=== PATIENT | female | born 1980 | race Caucasian/White ===

== ENCOUNTER → 2019-03-20 13:01 | Outpatient (BNVA) | payer OTHER, SELFPAY | PROVIDERS: PCP Nurse Practitioner; Visit Provider Nurse Practitioner | DX: R87.615 Unsatisfactory cytologic smear of cervix (principal); Z78.9 Other specified health status; J02.0 Streptococcal pharyngitis | CPT/HCPCS: 87070; 87081 ==

== ENCOUNTER 2019-03-21 11:03 | Outpatient (CLI) | payer OTHER, SELFPAY ==
--- NOTE | 2019-03-21 11:24 | MM_ITS ---
WS: [id number] SCREENING DIGITAL MAMMOGRAM WITH CAD HISTORY: SCREENING COMPARISON: None available. Bilateral CC and MLO views submitted. Computer aided detection analyzed. Breast composition: There are scattered areas of fibroglandular density. No suspicious masses, microc alcifications or architectural distortion. MM/[place] [id number] IMPRESSION: BI-RADS: 1-Negative FOLLOW UP: 1 Year Follow-up
== END 2019-03-21 11:04 | disposition home or self-care (01) ==
LOC: RADSHAW 11:12
PROVIDERS: PCP Nurse Practitioner Family; Visit Provider Nurse Practitioner Family
DX: Z12.31 Encounter for screening mammogram for malignant neoplasm of breast (principal)
CPT/HCPCS: 77067

== ENCOUNTER 2019-05-20 15:31 | Emergency (ER) | payer OTHER, SELFPAY ==
[2019-05-20 15:33] VITALS: BMI 42.3
[2019-05-20 15:35] VITALS: BP 146/88; PULSE 89; RESP 16; TEMP 36.7; O2SAT 96
--- NOTE | 2019-05-20 17:55 | ED_ITS ---
Entered by Jimmy Treadwell LPN, acting as scribe for Tim Casanova MD May 20, 2019 15:31 HPI - Abdominal Pain General: Chief Complaint: Abdominal Pain Stated Complaint: right side pain Time Seen by Provider: 05/20/19 17:57 Source: patient Mode of arrival: ambulatory Limitations: no limitations History of Present Illness: HPI narrative: 39 yo female presents reporting about 0300 this am she woke up with abd pain and nausea, had dry heaves. She went back to sleep and woke up without nausea but the abd pain was still present. Throughout the day today the pain has worsened, present in the right abd, worse with movement. She denies any fever. Has had chills. Associated Symptoms: Reports chills; Denies diarrhea, dysuria, fever(s), nausea and vomiting Related Data: Date of Last Menstrual Period: 03/18/19 Review of Systems Const: Reports: chills; Denies: fever, body aches or change in appetite Eyes: Denies: blurry vision or eye discomfort ENMT: Denies: throat pain or dental pain Card: Denies: chest pain Resp: Denies: shortness of breath GI: Reports: abdominal pain; Denies: nausea, vomiting or diarrhea : Denies: painful urination Musc: Denies: neck pain or back pain Skin/Breast: Denies: rash Neuro: Denies: headache Psych: Denies: depression [place]/Lymph: Denies: easy bruising All/Imm: Denies: hives PFSH ED PFSH: Social History Smoking and tobacco status: never smoked Alcohol intake: never Lives independently: Yes Number of children: 3 Female Reproductive History: Date of last menstrual period: 03/18/19 Spontaneous abortions: No Physical Exam Const: COMMON NORMALS: no apparent distress, oriented x3 and healthy appearing HENMT: COMMON NORMALS: normocephalic and head/scalp atraumatic HEAD & SCALP: normocephalic and atraumatic Eye: COMMON NORMALS: PERRL and EOMs intact bilaterally PUPIL: Yes PERRL Neck/C-Spine: COMMON NORMALS: full ROM and supple Chest: COMMONS NORMALS: inspection of chest normal and palpation of chest normal Resp: COMMON NORMALS: normal respiratory effort, no retractions, no use of accessory muscles and clear to auscultation bilaterally AUSCULTATION: clear to auscultation bilaterally Cardio: COMMON NORMALS: regular rate, regular rhythm and no murmurs RATE: regular rate RHYTHM: regular rhythm GI: COMMON NORMALS: normal to inspection, nondistended, normoactive bowel sounds, soft to palpation and no masses PALPATION: Yes soft and Yes tender (mild, right abd) Extremity: COMMON NORMALS: normal to inspection and full ROM Neuro: COMMON NORMALS: oriented x3, moves all extremities and no focal motor deficits Psych: COMMON NORMALS: mental status grossly normal, thought process normal and cooperative THOUGHT PROCESS: normal thought process Skin: COMMON NORMALS: no rashes or lesions noted and no wounds GENERAL SKIN EXAM: no rashes or lesions noted Course Vital Signs: Vital signs: Vital Signs Temperature 98.0 F 05/20/19 15:35 Pulse Rate 89 05/20/19 15:35 Respiratory Rate 15 05/20/19 18:43 Blood Pressure 146/88 05/20/19 15:35 Pulse Oximetry 96 05/20/19 15:35 MDM - Abdominal Pain MDM Narrative: Medical decision making narrative: Patient's ultrasound here did show a gallstone. Patient's wall was not thickened had no signs of cholecystitis. Patient's pain is resolved here and lab work is normal. Will set up appointment with Dr. Hamilton to follow-up with gallstones and abdominal pain. Patient exam here is benign has no signs of acute abdomen. Patient is stable for discharge. Lab Data: Labs: Lab Results 05/20/19 05/20/19 05/20/19 Range/Units 15:45 15:45 18:28 WBC 7.6 (4.0-10.0) 10^3/ uL RBC 4.90 (4.1-5.3) 10^6/u L Hgb 13.8 (11.5-15.3) g/dL Hct 43.0 (37.0-47.0) % MCV 87.8 (81-99) fL MCH 28.2 (28.0-34.0) pg MCHC 32.1 (30.0-36.0) g/dL RDW 13.7 (12.1-15.1) % Plt Count 257 (130-400) 10^3/c mm MPV 10.4 (7.4-10.4) fL Neut % (Auto) 63.9 % Lymph % (Auto) 28.5 % [place] % (Auto) 5.7 % Eos % (Auto) 1.4 % Baso % (Auto) 0.1 % Neut # (Auto) 4.9 (1.8-7.7) 10^3/u L Lymph # (Auto) 2.2 (0.8-4.8) 10^3/u L [place] # (Auto) 0.4 (0.2-0.9) 10^3/u L Eos # (Auto) 0.1 (0.0-0.8) 10^3/u L Baso # (Auto) 0.0 (0.0-0.1) 10^3/u L Nucleated RBC % (a uto) 0 % Nucleated RBCs # 0.0 /100WBC Sodium (136-145) mmol/L Potassium (3.5-5.1) mmol/L Chloride (98-107) mmol/L Carbon Dioxide (22-29) mmol/L Anion Gap (5-19) BUN (6-20) mg/dL Creatinine (0.5-0.9) mg/dL GFR Calculation (90-130) mL/min Glucose (65-115) mg/dL Calcium (8.5-10.5) mg/dL Total Bilirubin (0.15-1.2) mg/dL AST (0-32) U/L ALT (0-33) U/L Alkaline Phosphata se (35-105) IU/L Total Protein (6.6-8.7) g/dL Albumin (3.5-5.2) g/dL Globulin (1.3-4.6) g/dL Lipase (13-60) U/L HCG, Qual Negative (Negative) Urine Color Yellow (Yellow) Urine Appearance Clear (CLEAR) Urine pH 6 (5-7) Ur Specific Gravit y 1.015 (1.005-1.030) Urine Protein Neg (Negative) Urine Glucose (UA) Norm (Normal) Urine Ketones Negative (Negative) Urine Blood Neg (Negative) Urine Nitrate Negative (Negative) Urine Bilirubin Neg (NEGATIVE) Urine Urobilinogen Norm (Negative) mg/dL Ur Leukocyte Tammy ase Negative (Negative) 05/20/19 Range/Units 18:28 WBC (4.0-10.0) 10^3/ uL RBC (4.1-5.3) 10^6/u L Hgb (11.5-15.3) g/dL Hct (37.0-47.0) % MCV (81-99) fL MCH (28.0-34.0) pg MCHC (30.0-36.0) g/dL RDW (12.1-15.1) % Plt Count (130-400) 10^3/c mm MPV (7.4-10.4) fL Neut % (Auto) % Lymph % (Auto) % [place] % (Auto) % Eos % (Auto) % Baso % (Auto) % Neut # (Auto) (1.8-7.7) 10^3/u L Lymph # (Auto) (0.8-4.8) 10^3/u L [place] # (Auto) (0.2-0.9) 10^3/u L Eos # (Auto) (0.0-0.8) 10^3/u L Baso # (Auto) (0.0-0.1) 10^3/u L Nucleated RBC % (a uto) % Nucleated RBCs # /100WBC Sodium 138 (136-145) mmol/L Potassium 3.7 (3.5-5.1) mmol/L Chloride 100 (98-107) mmol/L Carbon Dioxide 24 (22-29) mmol/L Anion Gap 17.7 (5-19) BUN 9 (6-20) mg/dL Creatinine 1.0 H (0.5-0.9) mg/dL GFR Calculation 61.1 L (90-130) mL/min Glucose 91 (65-115) mg/dL Calcium 10.2 (8.5-10.5) mg/dL Total Bilirubin 0.3 (0.15-1.2) mg/dL AST 22 (0-32) U/L ALT 36 H (0-33) U/L Alkaline Phosphata se 78 (35-105) IU/L Total Protein 8.9 H (6.6-8.7) g/dL Albumin 3.8 (3.5-5.2) g/dL Globulin 5.1 H (1.3-4.6) g/dL Lipase 26 (13-60) U/L HCG, Qual (Negative) Urine Color (Yellow) Urine Appearance (CLEAR) Urine pH (5-7) Ur Specific Gravit y (1.005-1.030) Urine Protein (Negative) Urine Glucose (UA) (Normal) Urine Ketones (Negative) Urine Blood (Negative) Urine Nitrate (Negative) Urine Bilirubin (NEGATIVE) Urine Urobilinogen (Negative) mg/dL Ur Leukocyte Tammy ase (Negative) Discharge Plan Discharge Patient Disposition: Home, Self-Care Clinical Impression: Gall stone Abdominal pain Qualifiers: Abdominal location: right upper quadrant Qualified Code(s): R10.11 - Right upper quadrant pain Condition: Stable Prescriptions: New EC-Naprosyn 500 mg tablet,delayed release (DR/EC) 500 mg PO BID PRN (Reason: pain) Qty: 20 RF: 0 No Action melatonin 10 mg capsule 10 mg PO .at bedtime RF: 0 norgestimate-ethinyl estradiol [Sprintec (28)] 0.25-35 mg-mcg tablet 1 tab PO QDAY Qty: 84 RF: 1 amitriptyline 10 mg tablet 20 mg PO .bedtime 30 Days Qty: 60 RF: 0 omeprazole 20 mg capsule,delayed release(DR/EC) 20 mg PO DAILY Qty: 30 RF: 2 Discharge Orders: Discharge Order (Routine); Ordered 05/20/19 Ordered By: Tim Casanova Referrals: Freddy Zaragoza, [facility] [employer] OFFICER [Primary Care Provider] - Ronny Hamilton MD [Physician] - Discharge Diet: Advance as tolerated Discharge Activity: Resume usual activity Patient Instructions: Abdominal Pain (ED) Coding Level of Care Code ED Patent Examiner for Chg Fwd Exam Comprehensive The documentation recorded by the Eben matthew Dani Elizabeth, LPN, accurately reflects the service I personally performed and the decisions made by Edilberto mcneil Korby, MD May 20, 2019 15:31
--- NOTE | 2019-05-20 18:01 | US_ITS ---
WS: [id number] ABDOMINAL ULTRASOUND LIMITED REASON FOR VISIT: abd pain TECHNIQUE: Grayscale and Doppler ultrasound examination of the abdomen. FINDINGS: Pancreas: Within normal limits. Abdominal aorta and IVC: Within normal limits. Liver: Liver measures 14.4 cm in length. Hepatopedal portal blood flow. Gallbladder: Gallbladder wall thickness measures .28 mm. A prominent gallstone. Right kidney: Right kidney measures 12.1 cm x 3.5 cm x 3.9 cm. Right kidney cortex measures 1.03 cm. No hydronephrosis or stones. US/US gall bladder [id number] IMPRESSION: Cholelithiasis Acute cholecystitis.
[2019-05-20 18:20] LABS: HCG Qualitative Urine. Negative (Negative)
[2019-05-20 18:24] LABS: Add Urine Microscopic? NO
[2019-05-20 18:41] LABS: Bilirubin Urine Neg (NEGATIVE); Blood Urine Neg (Negative); Glucose Urine UA Norm (Normal); Ketones Urine Negative (Negative); Leukocyte Esterase Urine Negative (Negative); Nitrate Urine Negative (Negative); Protein Urine Neg (Negative); Specific Gravity, Urine 1.015 (1.005-1.030); Urine Appearance Clear (CLEAR); Urine Color Yellow (Yellow); Urobilinogen Urine Norm (Negative); pH Urine 6 (5-7)
[2019-05-20 18:43] VITALS: RESP 15
[2019-05-20] MEDS: morphine 4 mg/mL SDV 1 mL IVP (18:43)
[2019-05-20] MEDS: ondansetron 2 mg/ML SDV 2 mL 4 MG IVP (18:43)
[2019-05-20 18:45] LABS: Basophils % 0.1 %; Eosinophils # 0.1 10^3/uL (0.0-0.8); Eosinophils % 1.4 %; Hemoglobin 13.8 g/dL (11.5-15.3); Lymphocytes # 2.2 10^3/uL (0.8-4.8); Lymphocytes % 28.5 %; Mean Corpuscular HGB Conc 32.1 g/dL (30.0-36.0); Mean Corpuscular Hemoglobin 28.2 pg (28.0-34.0); Mean Corpuscular Volume 87.8 fL (81-99); Mean Platelet Volume 10.4 fL (7.4-10.4); Monocytes # 0.4 10^3/uL (0.2-0.9); Monocytes % 5.7 %; Neutrophils # 4.9 10^3/uL (1.8-7.7); Neutrophils % 63.9 %; Nucleated Red Blood Cells % 0 %; Platelet Count 257 10^3/cmm (130-400); Red Cell Distribution Width 13.7 % (12.1-15.1); White Blood Count 7.6 10^3/uL (4.0-10.0)
[2019-05-20 19:01] LABS: Alanine Aminotransferase 36 U/L (0-33); Albumin Level 3.8 g/dL (3.5-5.2); Alkaline Phosphatase 78 IU/L (35-105); Anion Gap 17.7 (5-19); Aspartate Amino Transferase 22 U/L (0-32); Blood Urea Nitrogen 9 mg/dL (6-20); Calcium 10.2 mg/dL (8.5-10.5); Carbon Dioxide 24 mmol/L (22-29); Chloride 100 mmol/L (98-107); Globulin 5.1 g/dL (1.3-4.6); Glomerular Filtration Rate 61.1 mL/min (90-130); Glucose 91 mg/dL (65-115); Lipase 26 U/L (13-60); Potassium 3.7 mmol/L (3.5-5.1); Sodium 138 mmol/L (136-145); Total Bilirubin 0.3 mg/dL (0.15-1.2); Total Protein 8.9 g/dL (6.6-8.7)
[2019-05-20 19:42] VITALS: BP 126/88; PULSE 75; RESP 18; TEMP 36.6; O2SAT 97
--- NOTE | 2019-05-21 15:08 | DCPLANNER ---
manager corporate marketing had message to schedule a follow up appointment for patient with [facility]. manager corporate marketing called the clinic, spoke with Mila, a follow up appointment is scheduled for Sunday, May 26, 2019 at 1:[address] Hamilton. Clinic will call patient with appointment information.
--- NOTE | 2019-05-28 14:17 | DCPLANNER ---
Patient did attend appointment scheduled for 05.26.19 with [facility].
== END 2019-05-20 19:45 | disposition home or self-care (01) ==
PROVIDERS: Emergency Provider Emergency Medicine; PCP Nurse Practitioner Family
DX: K80.00 Calculus of gallbladder with acute cholecystitis without obstruction (principal)
CPT/HCPCS: 36415; 76705; 80053; 81003; 81025; 83690; 85025; 96374; 96375; 99282; 99283; J2270; J2405

== ENCOUNTER 2019-06-04 05:53 | Day surgery (SDC) | payer OTHER, SELFPAY ==
[2019-06-03 12:20] VITALS: BMI 42.4
[2019-06-04] VITALS (17 sets, daily range): BP systolic 121–158; BP diastolic 73–100; PULSE 55–82; RESP 12–23; TEMP 36.6–36.9; O2SAT 94–100
--- NOTE | 2019-06-04 06:18 | ANES.PREANE2 ---
Pre-Anesthetic Assessment Pre-Anesthetic Assessment: Height/Weight: Height 1.65 m Weight 115.666 kg Temp Pulse Resp BP Pulse Ox 97.9 F 67 18 140/92 99 06/04/19 06:08 06/04/19 06:08 06/04/19 06:08 06/04/19 06:08 06/04/19 06:08 Preop Diagnosis: Cholelithiasis Proposed Procedure: Operation Date: 06/04/19 07:00 Proposed Procedures p Laparoscopic Cholecystectomy 88228 K80.20(Not Applicable) - Ronny Hamilton MD Last Intake: 22:00 Exam: Pre-Anes Outpt Exam: alert, oriented x 3, clear to auscultation bilaterally and regular rate & rhythm Airway: Submandibular: WNL Cervical ROM: WNL MP: 1 GI: GI: GERD Comments: well controlled with omeprazole Metabolic: Metabolic: Morbid obesity PFSH Anesthesia PFSH: Social History Smoking and tobacco status: never smoked Alcohol intake: never Lives independently: Yes Number of children: 3 Female Reproductive History: Date of last menstrual period: 05/13/19 Spontaneous abortions: No Data Anesthesia Cardiac Studies: No Data to Display
--- NOTE | 2019-06-04 06:51 | W.PM.OPSUD ---
Surgery/Procedure H&P Update DATE OF PROCEDURE: June 04, 2019 DATE H&P PERFORMED: 05/26/19 H&P UPDATE INFORMATION: I have reviewed H&P completed within last 30 days, I have examined patient prior to procedure and No changes to prior documentation PREOP DIAGNOSIS: Cholelithiasis PLANNED PROCEDURE: Operation Date: 06/04/19 07:00 Proposed Procedures p Laparoscopic Cholecystectomy 36277 K80.20(Not Applicable) - Ronny Hamilton MD
[2019-06-04 07:08] LABS: OR HCG Qualitative Urine Negative (Negative)
[2019-06-04] MEDS: sodium chloride 0.9% 1,000 ML 30 ML IV (08:03)
--- NOTE | 2019-06-04 08:06 | PM.OP ---
Operative Report Date of procedure: June 04, 2019 Pre-op Diagnosis: Cholelithiasis Post-op diagnosis: same Procedure Done: Laparoscopic cholecystectomy Specimens removed/disposition: Gallbladder Surgeon: Ronny Hamilton Anesthesia: General Estimated blood loss (mL): 10 Condition: stable Disposition: PACU Procedure: The patient was taken to the operating room and was intubated under general anesthesia. After the antibiotic had been administered, the abdomen was prepped and draped in a sterile manner. Using a #15 blade, a 1 centimeter infraumbilical curvilinear incision was made and using an open Geo technique the peritoneal cavity was entered. A 10 millimeter port was placed and 15 millimeters of pneumoperitoneum was created. A 10 millimeter, 30 degrees scope was then introduced. Three 5 millimeter ports were placed in the epigastric, midclavicular and the anterior axillary line two fingerbreadths below the costal margin on the right side under the direct visualization. Ratcheted forceps were introduced into the lateral most port and was used to retract the fundus of the gallbladder cephalad and using forceps the infundibulum of the gallbladder was retracted laterally. The omentum was adherent to the body of the gallbladder which was peeled away using electrocautery. Using L-hook cautery the peritoneum overlying the Calot's triangle was opened medially and laterally until the cystic duct and the anterior and posterior branch of cystic artery were skeletonized. Dissection was carried along the body of the gallbladder and after ensuring critical view of safety, 4 clips applied on the cystic duct and 3 clips applied on the anterior and posterior branch of cystic artery and cut leaving, 3 clips on the remaining portion of the duct and 2 clips on the remaining portion of the artery. The rest of the gallbladder was dissected off the liver using L-hook cautery. There was an opening in the body of the gallbladder with spillage of bile which was irrigated and suctioned out but there was no spillage of stones. There was no bleeding or bile leaking noted from the gallbladder fossa and the clips appeared to be in place. An EndoCatch bag was introduced to remove the gallbladder. All the ports were removed under direct visualization and there was no bleeding noted from the port sites. The fascia of the umbilicus was closed using [id number] 0 Vicryl sutures and the subcutaneous tissue was approximated using 3-0 Vicryl sutures. The skin at all four ports were closed using 4-0 Monocryl and Dermabond. A total of 10 millimeters of 0.5% Marcaine was infiltrated around the port sites. The patient was stable throughout the procedure.
--- NOTE | 2019-06-04 08:27 | SUR.PHASEI ---
0885 PATIENT TO PACU AT THIS TIME FROM OR. RR EVEN AND UNLABORED, PLACED ON SIMPLE MASK AT 8L, SPO2 99%. INCISIONS TO ABDOMEN, CLOSED WITH DERMABOND, CDI.
[2019-06-04] MEDS: fentaNYL 50 mcg/mL INJ 2mL IVP ×2 (08:32→08:39)
[2019-06-04] MEDS: morphine 4 mg/mL SDV 1 mL 2 MG IVP ×2 (08:46→08:51)
--- NOTE | 2019-06-04 09:04 | SUR.PHASEI ---
0901 PATIENT TO OPS AT THIS TIME. NO DISTRESS. INCISIONS TO ABDOMEN, CDI. PATIENT REPORTS PAIN /. WANTING A PAIN PILL IN OPS. ANESTHESIA AWARE OF LAST PAIN MEDICATION GIVEN.
[2019-06-04] MEDS: morphine 4 mg/mL SDV 1 mL IVP (09:20)
[2019-06-04] MEDS: HYDROcodone-acetaminophen 5-325 mg Tablet 1 TAB PO (09:29)
== END 2019-06-04 10:40 | disposition home or self-care (01) ==
PROVIDERS: Anesthesiology; PCP Nurse Practitioner Family; Visit Provider Surgery
PROC: 0FT44ZZ Resection of Gallbladder, Percutaneous Endoscopic Approach (ICD-10-PCS; CPT 47562; principal; 2019-06-04 07:00)
DX: K80.10 Calculus of gallbladder with chronic cholecystitis without obstruction (principal); F32.9 Major depressive disorder, single episode, unspecified; F41.9 Anxiety disorder, unspecified; K21.9 Gastro-esophageal reflux disease without esophagitis; G47.00 Insomnia, unspecified; Z82.49 Family history of ischemic heart disease and other diseases of the circulatory system; E66.01 Morbid (severe) obesity due to excess calories; Z68.41 Body mass index [BMI] 40.0-44.9, adult
CPT/HCPCS: 47562; 12345; 81025; 84703; 88304; 96374; J0131; J0690; J1100; J2001; J2270; J2704; J2710; J3010; J3490; J7030

== ENCOUNTER → 2019-08-15 08:26 | Outpatient (BNVA) | payer OTHER, SELFPAY | PROVIDERS: PCP Nurse Practitioner Family; Visit Provider Nurse Practitioner Women's Health | DX: Z30.41 Encounter for surveillance of contraceptive pills; Z32.00 Encounter for pregnancy test, result unknown | CPT/HCPCS: 81025 ==

== ENCOUNTER → 2019-11-04 15:32 | Outpatient (BNVA) | payer OTHER, SELFPAY | PROVIDERS: PCP Nurse Practitioner Family; Visit Provider Nurse Practitioner Family | DX: J03.91 Acute recurrent tonsillitis, unspecified (principal) | CPT/HCPCS: 87071; 87880 ==

== ENCOUNTER 2020-01-08 20:00 | Outpatient (CLI) | payer OTHER, SELFPAY | END 2020-01-08 20:01 | disposition home or self-care (01) | LOC: SLEEP 01-09 08:15 | PROVIDERS: PCP Nurse Practitioner Family; Visit Provider Specialist | DX: R06.83 Snoring (principal); G47.33 Obstructive sleep apnea (adult) (pediatric) | CPT/HCPCS: 95810 ==

== ENCOUNTER → 2020-02-26 15:19 | Outpatient (BNVA) | payer OTHER, SELFPAY | PROVIDERS: PCP Nurse Practitioner Family; Visit Provider Specialist | DX: Z01.812 Encounter for preprocedural laboratory examination (principal); Z20.828 Contact with and (suspected) exposure to other viral communicable diseases | CPT/HCPCS: 87635 ==

== ENCOUNTER 2020-03-02 06:02 | Day surgery (SDC) | payer OTHER, SELFPAY ==
[2020-03-01 09:24] VITALS: BMI 44.1
[2020-03-02] VITALS (9 sets, daily range): BP systolic 129–152; BP diastolic 82–111; PULSE 64–97; RESP 14–18; TEMP 36.1–36.9; O2SAT 94–100
--- NOTE | 2020-03-02 06:39 | ANES.PREANE2 ---
Pre-Anesthetic Assessment Pre-Anesthetic Assessment: Height/Weight: Height 1.65 m Weight 120.202 kg Preop Diagnosis: Cholelithiasis Proposed Procedure: Operation Date: 03/02/20 07:00 Proposed Procedures p Tonsillectomy(Bilateral) - Albert Choe MD Was Beta Humza taken within 24 hours: N/A Last intake: Intake Last Liquid Date 03/01/20 Last Liquid Time 21:45 Last Solid Date 03/01/20 Last Solid Time 20:30 Social: Social History: No alcohol and No tobacco Exam: Pre-Anes Outpt Exam: alert, oriented x 3, clear to auscultation bilaterally and regular rate & rhythm Airway: Submandibular: WNL Cervical ROM: WNL MP: 2 (Severely hypertrophied tonsils ) Pulmonary: Pulmonary: Sleep apnea CV/HEM: CV/HEM: None reported : : None reported Hepatic: Hepatic: None reported GI: GI: GERD Metabolic: Metabolic: Morbid obesity Musc/skel: Musc/skel: None reported Neuropsych: Neuropsych: Anxiety Anesthetic Plan: ASA status: 3 Anesthesia: General PFSH Anesthesia PFSH: Medical History (Updated 11/04/19 @ 15:54 by ANTOLIN Santo) Depression with anxiety GERD (gastroesophageal reflux disease) Insomnia Recurrent tonsillitis Surgical History Status post laparoscopic cholecystectomy (~05/2019) Family History Brother CAD (coronary artery disease) Mother Hemochromatosis Other Heart disease Social History Smoking and tobacco status: never smoked Alcohol intake: never Female Reproductive History: Date of last menstrual period: 02/12/20 Spontaneous abortions: No Data Anesthesia Cardiac Studies: No Data to Display
[2020-03-02 06:45] LABS: Basophils % 0.2 %; Eosinophils # 0.3 10^3/uL (0.0-0.8); Eosinophils % 2.9 %; Hemoglobin 13.1 g/dL (11.5-15.3); Lymphocytes % 30.6 %; Mean Corpuscular HGB Conc 32.8 g/dL (30.0-36.0); Mean Corpuscular Hemoglobin 29.3 pg (28.0-34.0); Mean Corpuscular Volume 89.5 fL (81-99); Mean Platelet Volume 10.4 fL (7.4-10.4); Monocytes # 0.6 10^3/uL (0.2-0.9); Monocytes % 6.1 %; Neutrophils # 5.91 10^3/uL (1.8-7.7); Neutrophils % 59.9 %; Nucleated Red Blood Cells % 0 %; Platelet Count 226 10^3/cmm (130-400); Red Blood Count 4.47 10^6/uL (4.1-5.3); Red Cell Distribution Width 12.5 % (12.1-15.1); White Blood Count 9.9 10^3/uL (4.0-10.0)
[2020-03-02] MEDS: sodium chloride 0.9% 1,000 ML 30 ML IV (06:48)
--- NOTE | 2020-03-02 06:55 | W.PM.OPSUD ---
Surgery/Procedure H&P Update DATE OF PROCEDURE: March 02, 2020 DATE H&P PERFORMED: 02/19/20 H&P UPDATE INFORMATION: I have reviewed H&P completed within last 30 days, I have examined patient prior to procedure and No changes to prior documentation PREOP DIAGNOSIS: Cholelithiasis PLANNED PROCEDURE: Operation Date: 03/02/20 07:00 Proposed Procedures p Tonsillectomy(Bilateral) - Albert Choe MD
--- NOTE | 2020-03-02 06:56 | W.PM.OPSUD ---
Surgery/Procedure H&P Update DATE OF PROCEDURE: March 02, 2020 DATE H&P PERFORMED: 02/19/20 H&P UPDATE INFORMATION: I have reviewed H&P completed within last 30 days, I have examined patient prior to procedure and No changes to prior documentation PREOP DIAGNOSIS: Chronic tonsillitis PLANNED PROCEDURE: Operation Date: 03/02/20 07:00 Proposed Procedures p Tonsillectomy(Bilateral) - Albert Choe MD
[2020-03-02] MEDS: silver nitrate applicator 1 EACH TOPICAL ×2 (08:16)
--- NOTE | 2020-03-02 08:40 | PM.OP ---
Operative Report Date of procedure: March 02, 2020 Pre-op Diagnosis: Chronic tonsillitis Post-op diagnosis: same Post-op Findings: 3+ tonsils bilaterally O/W normal oral cavity exam Procedure Done: Bilateral tonsillectomy Implants: None Specimens removed/disposition: None Pathology: none sent Surgeon: Albert Choe Territory Account Manager: Matteo Dye Anesthesia: General Estimated blood loss (mL): 25 IV fluids (mL): 1,000 Complications: None Findings: 3+ tonsils bilaterally Condition: stable Disposition: PACU Brief History: 40 yo wf with a h/o chronic tonsillitis with tonsilloliths who desires surgical therapy. Procedure: The patient was identified in the preop holding area and was taken to the operating room where she was placed on the operating table in the supine position. Anesthesia was obtained with general endotracheal anesthesia and the table was turned 90 degrees to the patient's left. The patient was then prepped and draped in the usual sterile fashion and a McIvor mouthgag was placed atraumatically in the patient's oral cavity. The patient was then placed in the Maryjane position and an inspection was carried to the patient's oral cavity and oropharynx with the findings noted above. The Coblation wand was used to remove the tonsils bilaterally down to the tonsillar capsule by Coblation as an extracapsular tonsillectomy. Hemostasis was achieved with Coblation cautery, bipolar cautery, and suction cautery. Once this was accomplished, the patient's oral cavity was irrigated with a copious amount of normal saline. The patient's oral cavity was inspected for hemostasis which was found to be adequate. At this point the patient was taken off suspension, and the mouthgag was atraumatically released and removed. The procedure was then terminated and control of the patient was returned to anesthesia where she underwent an uneventful reversal of anesthesia and extubation and was taken to the recovery room in stable condition. There were no operative or anesthetic complications.
[2020-03-02] MEDS: triamcinolone 40 mg/mL SDV IM (08:50)
[2020-03-02] MEDS: HYDROcodone-APAP 7.5-325 mg/15 mL UDC PO (09:27)
[2020-03-02] MEDS: cetylpyridinium Lozenge 1 EACH MUCOUS MEM (09:39)
--- NOTE | 2020-03-02 10:01 | ANE.PACU2 ---
Inpatient post-anesthesia follow up: Airway intact: Yes Vital signs: Temperature 98.5 F Pulse Rate 65 Respiratory Rate 18 Blood Pressure 130/82 Pulse Oximetry 98 Oxygen Delivery Me thod Room Air Oxygen Flow Rate 6 Fraction of Inspir ed Oxygen Hydration adequate: Yes Nausea and vomiting: No Pain level: 4 Mental status: Baseline
--- NOTE | 2020-03-02 10:03 | SUR.PHASEII ---
ice pack given to patient to hold to anterior neck for throat pain per patient request.
[2020-03-02] MEDS: metoclopramide 5 mg/mL SDV 2 mL 10 MG IVP (10:21)
[2020-03-02] MEDS: scopolamine 1.5 Patch 1 PATCH TRANSDERMA (10:28)
== END 2020-03-02 11:08 | disposition home or self-care (01) ==
PROVIDERS: PCP Nurse Practitioner Family; Visit Provider Specialist
PROC: (CPT 42826; principal; 2020-03-02 07:00)
DX: J35.01 Chronic tonsillitis (principal); G47.30 Sleep apnea, unspecified; K21.9 Gastro-esophageal reflux disease without esophagitis; E66.01 Morbid (severe) obesity due to excess calories; Z68.41 Body mass index [BMI] 40.0-44.9, adult; F41.9 Anxiety disorder, unspecified
CPT/HCPCS: 42826; 12345; 36415; 81025; 85025; 96372; 96374; J0131; J1100; J2704; J2710; J2765; J3010; J3301; J3490; J7030

== ENCOUNTER 2020-03-13 06:30 | Emergency (ER) | payer OTHER, SELFPAY ==
[2020-03-13 06:35] VITALS: BP 116/75; PULSE 71; RESP 14; TEMP 36.3; O2SAT 94; BMI 42.4
--- NOTE | 2020-03-13 07:00 | W.ED.GENADLT ---
HPI - General Adult General: Chief complaint: General Medical Stated complaint: Tonsil Related Pain/Post Surgery Time Seen by Provider: 03/13/20 06:54 History of Present Illness: HPI narrative: 40-year-old female presents emergency room she is 11 days status post tonsillectomy. This morning the eschar sloughed off of the left tonsillar bed and she had a little bit of bright red blood she became alarmed and came to the hospital concerned. She is not actively bleeding now still having difficulty swallowing she is not tachycardic she is awake and alert and oriented x3. There is no significant pain no difficulty breathing no chest pain Onset (ago): hour(s) Associated symptoms: Deny chest pain, confusion, cough, diaphoresis, decreased appetite, dyspnea, fevers/chills, headache(s), malaise, nausea, rash, palpitations, seizures, short of breath, syncope, vomiting or weakness Treatments prior to arrival: none Review of Systems Const: Denies: malaise or diaphoresis ENMT: Denies: throat pain, ear or mastoid pain, nasal discharge or nasal congestion Card: Denies: chest pain, palpitations or syncope Resp: Denies: dyspnea GI: Denies: nausea or vomiting : Denies: flank pain, difficulty voiding, dysuria, urinary frequency or urinary urgency Skin/Breast: Denies: rash Neuro: Denies: headache(s) PFS ED PFSH: Medical History Depression with anxiety GERD (gastroesophageal reflux disease) Insomnia Recurrent tonsillitis Surgical History Status post laparoscopic cholecystectomy (~05/2019) Family History Brother CAD (coronary artery disease) Mother Hemochromatosis Other Heart disease Social History Smoking and tobacco status: never smoked Alcohol intake: never Female Reproductive History: Date of last menstrual period: 02/12/20 Spontaneous abortions: No Physical Exam Const: COMMON NORMALS: no acute distress GENERAL APPEARANCE: cooperative and comfortable ORIENTATION/CONSCIOUSNESS: Yes awake, Yes oriented to person, Yes oriented to place and Yes oriented to time HENMT: COMMON NORMALS: normocephalic, atraumatic and hearing grossly normal bilaterally HEAD & SCALP: normocephalic and atraumatic OTHER: Right tonsillar bed there is a mucousy eschar present no active bleeding left tonsillar bed mucousy eschar has sloughed off there is a few dark red older small punctate appearing lesions there is no active bleeding no evidence of any bright red blood. There is no lymphadenopathy of the neck. No swelling in the posterior pharynx tonsillar bed or tongue there is no erythema. Eye: COMMON NORMALS: Equal, round and reactive pupils present, EOMs intact bilaterally, conjunctivae normal and no scleral icterus CONJUNCTIVA: Yes conjunctivae normal PUPIL: Yes Equal, round and reactive pupils present Neck/C-Spine: COMMON NORMALS: full ROM, no lymphadenopathy, supple and no JVD Lymph: LYMPHATIC: no lymphadenopathy noted and no lymphedema noted Resp: COMMON NORMALS: normal respiratory effort, No retractions, No use of accessory muscles and clear to auscultation bilaterally AUSCULTATION: clear to auscultation bilaterally Cardio: COMMON NORMALS: no JVD, regular rate, regular rhythm and No murmurs present (Cardio) RATE: regular rate RHYTHM: regular rhythm GI: COMMON NORMALS: Soft to palpation and No hepatosplenomegaly present AUSCULTATION: Yes normoactive bowel sounds PALPATION: Yes Soft to palpation, No Tenderness to palpation present (GI), No Guarding due to palpation present (GI) and Yes No hepatosplenomegaly present Extremity: COMMON NORMALS: normal to inspection, capillary refill normal, no clubbing, cyanosis or edema, no calf tenderness and no pedal edema Neuro: SENSORIUM/ORIENTATION: Yes oriented to person, Yes oriented to place and Yes oriented to time Skin: COMMON NORMALS: no rashes or lesions noted GENERAL SKIN EXAM: no rashes or lesions noted Course Vital Signs: Vital signs: Vital Signs Temperature 97.4 F L 03/13/20 06:35 Pulse Rate 71 03/13/20 06:35 Respiratory Rate 14 03/13/20 06:35 Blood Pressure 116/75 03/13/20 06:35 Pulse Oximetry 94 03/13/20 06:35 MDM - General Adult MDM Narrative: Medical decision making narrative: No active bleeding on exam no signs of infection inflammation or any other abnormality it appears typical for what I would expect at this point postop. Discussed with Dr. James just to inform him he advised follow-up as previously scheduled Lab Data: Labs: Lab Results 03/13/20 Range/Units 07:27 WBC 6.9 (4.0-10.0) 10^3/ uL RBC 4.81 (4.1-5.3) 10^6/u L Hgb 14.2 (11.5-15.3) g/dL Hct 45.3 (37.0-47.0) % MCV 94.2 (81-99) fL MCH 29.5 (28.0-34.0) pg MCHC 31.3 (30.0-36.0) g/dL RDW 13.1 (12.1-15.1) % Plt Count 193 (130-400) 10^3/c mm MPV 10.4 (7.4-10.4) fL Neut % (Auto) 60.6 % Lymph % (Auto) 29.8 % [place] % (Auto) 6.1 % Eos % (Auto) 2.9 % Baso % (Auto) 0.3 % Neut # (Auto) 4.16 (1.8-7.7) 10^3/u L Lymph # (Auto) 2.1 (0.8-4.8) 10^3/u L [place] # (Auto) 0.4 (0.2-0.9) 10^3/u L Eos # (Auto) 0.2 (0.0-0.8) 10^3/u L Baso # (Auto) 0.0 (0.0-0.1) 10^3/u L Nucleated RBC % (a uto) 0 % Nucleated RBCs # 0.0 /100WBC Discharge Plan Discharge Patient Disposition: Home Clinical Impression: Post-tonsillectomy hemorrhage Condition: Stable Prescriptions: No Action melatonin 10 mg capsule 10 mg PO BEDTIME RF: 0 norgestimate-ethinyl estradiol [Sprintec (28)] 0.25-35 mg-mcg tablet 1 tab PO QDAY Qty: 84 RF: 3 amitriptyline 10 mg tablet 20 mg PO BEDTIME RF: 0 omeprazole 20 mg capsule,delayed release(DR/EC) 20 mg PO BEDTIME RF: 0 hydrocodone-acetaminophen 7.5-325 mg/15 mL solution 17 ml PO Q6H PRN (Reason: pain) Qty: 500 RF: 0 Discharge Orders: Discharge ED (Routine); Ordered 03/13/20 Ordered By: Michele Hall Referrals: IVONE Zaragoza, GUM MIXER [Primary Care Provider] - Discharge Diet: As Directed Discharge Activity: Resume usual activity Activity Restrictions/Additional Instructions: Follow-up with Dr. Choe as previously planned Coding Level of Care Code ED Paper Cone Drying Machine Operator for Chg Fwd Exam Comprehensive
[2020-03-13 07:45] LABS: Basophils % 0.3 %; Eosinophils # 0.2 10^3/uL (0.0-0.8); Eosinophils % 2.9 %; Hematocrit 45.3 % (37.0-47.0); Hemoglobin 14.2 g/dL (11.5-15.3); Lymphocytes # 2.1 10^3/uL (0.8-4.8); Lymphocytes % 29.8 %; Mean Corpuscular HGB Conc 31.3 g/dL (30.0-36.0); Mean Corpuscular Hemoglobin 29.5 pg (28.0-34.0); Mean Corpuscular Volume 94.2 fL (81-99); Mean Platelet Volume 10.4 fL (7.4-10.4); Monocytes # 0.4 10^3/uL (0.2-0.9); Monocytes % 6.1 %; Neutrophils # 4.16 10^3/uL (1.8-7.7); Neutrophils % 60.6 %; Nucleated Red Blood Cells % 0 %; Platelet Count 193 10^3/cmm (130-400); Red Blood Count 4.81 10^6/uL (4.1-5.3); Red Cell Distribution Width 13.1 % (12.1-15.1); White Blood Count 6.9 10^3/uL (4.0-10.0)
[2020-03-13 08:38] VITALS: BP 128/77; PULSE 64; RESP 16; O2SAT 94
== END 2020-03-13 08:38 | disposition home or self-care (01) ==
PROVIDERS: Emergency Provider Family Medicine; PCP Nurse Practitioner Family
DX: K91.840 Postprocedural hemorrhage of a digestive system organ or structure following a digestive system procedure (principal)
CPT/HCPCS: 12345; 85025; 99282

== ENCOUNTER 2020-03-13 21:32 | Emergency (ER) | payer OTHER, SELFPAY ==
[2020-03-13 21:37] VITALS: BP 141/89; PULSE 87; RESP 16; TEMP 36.8; O2SAT 98; BMI 42.4
--- NOTE | 2020-03-13 22:37 | P.CONIM_ITS ---
Providers/Reason For Consult Consulting Physican/Specialty*: Dr. Albert Choe MD Otolaryngology, Head & Neck Surgery Reason for Consult*: Post tonsillectomy bleeding Requesting Physcian: Hever Lamas Attending Physician: Rajan Lamas Primary Care Provider: ANTOLIN Nobles History of Present Illness History of Present Illness Yanni Rocha is a 40 year old female who underwent bilateral tonsillectomy 11 days ago who reports spontaneous oral bleeding x 2 today. She [place] [facility] [place], and tonight as well after a second bleeding episode. The patient denies taking any NSAIDs and reports that she has o/w been doing well. Review of Systems General: Reports: 10 or more systems reviewed and unremarkable except in HPI and below Meds/Allergies Home Medications and Allergies Home Medications Medication Instructions Recorded Confirmed Last Taken Type melatonin 10 mg capsule 10 mg PO BEDTIME cap 05/02/19 03/02/20 03/01/20 History norgestimate 0.25 mg-ethinyl 1 tab PO QDAY #84 tab 08/15/19 03/02/20 03/01/20 Rx estradiol 35 mcg tablet amitriptyline 20 mg PO BEDTIME 03/02/20 03/02/20 03/01/20 History hydrocodone-acetaminophen 17 ml PO Q6H PRN #500 ml 03/02/20 Unknown Rx omeprazole 20 mg PO BEDTIME 03/02/20 03/02/20 03/01/20 History Allergies Allergy/AdvReac Type Severity Reaction Status Date / Time fluconazole [From Diflucan] AdvReac ADR-Abdominal Verified 03/13/20 21:44 Pain ondansetron [From Zofran] AdvReac migraine Verified 03/13/20 21:44 headache PFSH Acute PFSH: Medical History Depression with anxiety GERD (gastroesophageal reflux disease) Insomnia Recurrent tonsillitis Surgical History Status post laparoscopic cholecystectomy (~05/2019) Family History Brother CAD (coronary artery disease) Mother Hemochromatosis Other Heart disease Social History Smoking and tobacco status: never smoked Alcohol intake: never Female Reproductive History: Date of last menstrual period: 03/13/20 Spontaneous abortions: No Vitals/I&O/Wt Last Vital Signs Temp 98.3 F 03/13/20 21:37 Pulse 87 03/13/20 21:37 Resp 16 03/13/20 21:37 BP 141/89 03/13/20 21:37 Pulse Ox 98 03/13/20 21:37 Weight last 48 hrs Weight 115.666 kg Physical Exam Const: COMMON NORMALS: no acute distress, healthy appearing and alert ORIENTATION/CONSCIOUSNESS: Yes Other orientation findings HENMT: COMMON NORMALS: normocephalic, hearing grossly normal bilaterally and Normal external nose present HEAD & SCALP: normocephalic FACE & SINUS: normal facial exam NOSE: Normal external nose present THROAT: other (Normal post tonsillectomy exam; no bleeding noted) Eye: COMMON NORMALS: Equal, round and reactive pupils present and conjunctivae normal GENERAL EYE: normal light reflex CONJUNCTIVA: Yes conjunctivae normal PUPIL: Yes Equal, round and reactive pupils present DIRECT OPHTHALMOSCOPY: Yes normal light reflex Neck/C-Spine: COMMON NORMALS: full ROM and no lymphadenopathy Neuro: SENSORIUM/ORIENTATION: Yes alert A&P Additional A&P Information Impression: 40 yo wf 11 days post tonsillectomy with post tonsillectomy bleeding - now resolved Plan: Resume previously outlined post op care; increase oral fluid intake; f/u with me next week and as needed for any additional problems. Procedures Procedure Narrative [id number] Cautery of post tonsillectomy bleeding: verbal informed consent was obtained; the patient's oral cavity was inspected, and was sprayed with Hurricaine topical anesthetic; the tonsillar fossae were treated bilaerally with AgN03 without incident; the patient tolerated the procedure well and there were no complications. Coding Level of Care Code Acute Customs Examiner for Bjorn José
--- NOTE | 2020-03-13 22:53 | ED_ITS ---
HPI - Recheck/Abnormal Lab/Rx General: Chief Complaint: Recheck/Abnormal Lab/Rx Stated Complaint: here this morning, bleeding from tonsil surgery Time Seen by Provider: 03/13/20 21:47 History of Present Illness: HPI narrative: Patient here by Dr. James to be gerardo luated Dr. James was called and he came to the ER to evaluate patient patient had some bleeding from her tonsil area earlier today Review of Systems Const: Denies: fever(s), chills or body aches Eyes: Denies: change in vision or blurry vision ENMT: Reports: other (Bleeding in throat post tonsillectomy); Denies: throat pain or nasal congestion Card: Denies: chest pain or dyspnea on exertion Resp: Denies: dyspnea, productive cough or non-productive cough GI: Denies: abdominal pain, nausea or vomiting Musc: Denies: extremity pain Skin/Breast: Denies: rash Neuro: Denies: headache(s) Psych: Denies: anxiety or depression [place]/Lymph: Denies: easy bruising PFSH ED PFSH: Medical History Depression with anxiety GERD (gastroesophageal reflux disease) Insomnia Recurrent tonsillitis Surgical History Status post laparoscopic cholecystectomy (~05/2019) Family History Brother CAD (coronary artery disease) Mother Hemochromatosis Other Heart disease Social History Smoking and tobacco status: never smoked Alcohol intake: never Female Reproductive History: Date of last menstrual period: 03/13/20 Spontaneous abortions: No Physical Exam Const: COMMON NORMALS: no acute distress HENMT: OTHER: Gaps present on throat no active bleeding noted Psych: COMMON NORMALS: mental status grossly normal APPEARANCE: Yes grossly normal Course Vital Signs: Vital signs: Vital Signs Temperature 98.3 F 03/13/20 21:37 Pulse Rate 87 03/13/20 21:37 Respiratory Rate 16 03/13/20 21:37 Blood Pressure 141/89 03/13/20 21:37 Pulse Oximetry 98 03/13/20 21:37 Discharge Plan Discharge Patient Disposition: Home Clinical Impression: Post-tonsillectomy hemorrhage Condition: Stable Prescriptions: No Action melatonin 10 mg capsule 10 mg PO BEDTIME RF: 0 norgestimate-ethinyl estradiol [Sprintec (28)] 0.25-35 mg-mcg tablet 1 tab PO QDAY Qty: 84 RF: 3 amitriptyline 10 mg tablet 20 mg PO BEDTIME RF: 0 omeprazole 20 mg capsule,delayed release(DR/EC) 20 mg PO BEDTIME RF: 0 hydrocodone-acetaminophen 7.5-325 mg/15 mL solution 17 ml PO Q6H PRN (Reason: pain) Qty: 500 RF: 0 Discharge Orders: Discharge ED (Routine); Ordered 03/13/20 Ordered By: Hever Lamas Referrals: IVONE Zaragoza, SCOUT LEASER [Primary Care Provider] - Discharge Diet: Usual diet Discharge Activity: Resume usual activity Activity Restrictions/Additional Instructions: Follow-up Dr. James as directed return to the ER if bleeding recurs Coding Level of Care Code ED Singing Telegram Performer for Bjorn José
[2020-03-13 22:55] VITALS: RESP 16
== END 2020-03-13 22:57 | disposition home or self-care (01) ==
PROVIDERS: Emergency Provider Nurse Practitioner Family; PCP Nurse Practitioner Family
DX: K91.840 Postprocedural hemorrhage of a digestive system organ or structure following a digestive system procedure (principal)
CPT/HCPCS: 12345; 99281

== ENCOUNTER → 2020-04-02 08:54 | Outpatient (BNVA) | payer OTHER, SELFPAY | PROVIDERS: PCP Nurse Practitioner Family; Visit Provider Psychiatry & Neurology Neurology | DX: F41.8 Other specified anxiety disorders (principal); Z63.0 Problems in relationship with spouse or partner | CPT/HCPCS: 90791 ==

== ENCOUNTER 2020-06-08 14:36 | Outpatient (CLI) | payer OTHER, SELFPAY ==
--- NOTE | 2020-06-08 14:41 | MM_ITS ---
WS: [id number] BILATERAL SCREENING DIGITAL MAMMOGRAM WITH CAD HISTORY: Z12.31 - Encounter for screening mammogram for malignant neoplasm of breast COMPARISON: 03/21/2019 Bilateral CC and MLO views submitted. Computer aided detection analyzed. Breast composition: There are scattered areas of fibroglandular density. No suspicious masses, microc alcifications or architectural distortion. MM/[place] [id number] IMPRESSION: BI-RADS: 1-Negative FOLLOW UP: 1 Year Follow-up
== END 2020-06-08 14:37 | disposition home or self-care (01) ==
LOC: RADSHAW 14:38
PROVIDERS: PCP Nurse Practitioner Family; Visit Provider Nurse Practitioner Family
DX: Z12.31 Encounter for screening mammogram for malignant neoplasm of breast (principal)
CPT/HCPCS: 77067

== ENCOUNTER → 2020-07-06 14:03 | Outpatient (BNVA) | payer OTHER, SELFPAY | PROVIDERS: PCP Nurse Practitioner Family; Visit Provider Counselor Professional | DX: F32.9 Major depressive disorder, single episode, unspecified (principal); Z63.0 Problems in relationship with spouse or partner | CPT/HCPCS: 90834 ==

== ENCOUNTER → 2020-07-13 07:56 | Outpatient (BNVA) | payer OTHER, SELFPAY | PROVIDERS: PCP Nurse Practitioner Family; Visit Provider Counselor Professional | DX: F32.9 Major depressive disorder, single episode, unspecified (principal); Z63.0 Problems in relationship with spouse or partner | CPT/HCPCS: 90834 ==

== ENCOUNTER → 2020-07-27 14:16 | Outpatient (BNVA) | payer OTHER, SELFPAY | PROVIDERS: PCP Nurse Practitioner Family; Visit Provider Counselor Professional | DX: F32.9 Major depressive disorder, single episode, unspecified (principal); Z63.0 Problems in relationship with spouse or partner | CPT/HCPCS: 90832 ==

== ENCOUNTER 2020-08-12 12:18 | Emergency (ER) | payer OTHER, SELFPAY ==
--- NOTE | 2020-08-12 12:22 | XR_ITS ---
WS: [id number] RIGHT KNEE: 3 VIEW(S) TECHNIQUE: AP, oblique(s) and lateral. HISTORY: injury/fall COMPARISON: None available. Tiny avulsion versus osteophyte from the medial tibial spine. Fractures from the tibial spine can be noted with ACL injuries. There is no significant edema. No joint space narrowing or osteophytes. No joint effusion. No soft tissue abnormality. XR/XR knee RT 3V* [id number] IMPRESSION: Small osteophyte versus tiny avulsion fracture from the medial tibial spine. Th sheila fractures can be seen with ACL injuries.
[2020-08-12 13:03] VITALS: BP 150/94; PULSE 82; RESP 16; TEMP 37.1; O2SAT 96; BMI 46.5
--- NOTE | 2020-08-12 13:22 | W.ED.LOWEXIN ---
HPI - Extremity Injury (Lower) General: Chief Complaint: Extremity Injury, Lower Stated Complaint: FELL RIGHT KNEE INJURY Time Seen by Provider: 08/12/20 13:15 Source: patient Mode of arrival: wheelchair Limitations: no limitations History of Present Illness: HPI Narrative: Patient is a 40-year-old female who presents to ED today for evaluation of her right knee pain. Patient tells me this morning while at home she accidentally tripped over a laundry basket full of clothes and states when she fell she could feel something pop inside of her right knee. She is complaining of pain to the knee posterior lateral aspect of her knee. She tells me she has not been able to bear weight since the event secondary to discomfort. No other injuries sustained during event. MD complaint: knee injury Onset (ago): hour(s) Injury: Right: knee Place: home Severity: moderate Relieving factors: immobilization Exacerbating factors: weight bearing, movement and palpation Context: fall and other (twisting) Associated symptoms: Reports inability to bear weight Other symptoms: none Review of Systems Musc: Reports: joint pain (R knee); Denies: extremity pain, extremity swelling or joint swelling Neuro: Reports: difficulty walking (secondary to pain); Denies: numbness in extremities, weakness in extremities or sensory changes PFSH ED PFSH: Medical History Depression with anxiety GERD (gastroesophageal reflux disease) Insomnia Recurrent tonsillitis Surgical History Status post laparoscopic cholecystectomy (~05/2019) Family History Brother CAD (coronary artery disease) Mother Hemochromatosis Other Heart disease Social History (Updated 08/12/20 @ 13:07 by Paramjit Leyva RN) Smoking and tobacco status: never smoked Alcohol intake: never Substance/Drug Use: never Female Reproductive History: Date of last menstrual period: 07/30/20 Spontaneous abortions: No Physical Exam Const: COMMON NORMALS: no acute distress, no limitations and alert GENERAL APPEARANCE: cooperative Extremity: GENERAL: Yes normal exam except as noted RIGHT LOWER EXTREMITY: Yes knee joint (TTP anteriolateral knee; dec flexion secondary to pain) Right knee: Yes neurovascular exam (normal), Yes other (no significant joint effusion) and Yes special tests (no obvious joint laxity noted ) Neuro: COMMON NORMALS: moves all extremities, no focal motor deficits and no sensory deficits noted SENSORIUM/ORIENTATION: Yes alert GAIT: Yes Unable to assess gait Skin: COMMON NORMALS: no rashes or lesions noted GENERAL SKIN EXAM: no rashes or lesions noted TRAUMA: no lacerations or abrasions Course Vital Signs: Vital signs: Vital Signs Temperature 98.8 F 08/12/20 13:03 Pulse Rate 82 08/12/20 13:03 Respiratory Rate 16 08/12/20 13:03 Blood Pressure 150/94 08/12/20 13:03 Pulse Oximetry 96 08/12/20 13:03 MDM - Extremity Injury (Lower) MDM Narrative: Medical decision making narrative: Pt with avulsion fx vs osteophyte of tibial spine. Given recent hx of trauma will need to treat like acute fx. Will place in knee immobilizer and give crutches. Have her be non weight bearing until cleared/evaluated by orthopedics. Imaging Data^: XR R knee: Radiologist's impression: [employer] [address] XRay Report Signed Patient: Yanni Rocha Unit #: [id number] : 1980 Age/Sex: 40 / F ADM Date: 08/12/20 Loc: ER Room/Bed: Attending Dr: Ordering Provider/Ordering MD: Micaela Gutierrez Date of Service: 08/12/20 Procedure(s): XR knee RT 3V* [id number] Accession Number(s): [id number] Report Number: [id number] WS: [id number] RIGHT KNEE: 3 VIEW(S) TECHNIQUE: AP, oblique(s) and lateral. HISTORY: injury/fall COMPARISON: None available. Tiny avulsion versus osteophyte from the medial tibial spine. Fractures from the tibial spine can be noted with ACL injuries. There is no significant edema. No joint space narrowing or osteophytes. No joint effusion. No soft tissue abnormality. XR/XR knee RT 3V* [id number] IMPRESSION: Small osteophyte versus tiny avulsion fracture from the medial tibial spine. These fractures can be seen with ACL injuries. Dictated By: Nasra Khalil DO Signed By: Nasra Khalil DO Signed Date/Time: 08/12/20 1240 DD/ 1239 Discharge Plan Discharge Patient Disposition: Home Clinical Impression: Fracture of right tibial spine Qualifiers: Encounter type: initial encounter Fracture type: closed Fracture alignment: nondisplaced Qualified Code(s): S82.114A - Nondisplaced fracture of right tibial spine, initial encounter for closed fracture Condition: Stable Prescriptions: New hydrocodone-acetaminophen 5-325 mg tablet 1 tab PO Q6H PRN (Reason: pain) Qty: 14 RF: 0 No Action melatonin 10 mg capsule 10 mg PO BEDTIME RF: 0 norgestimate-ethinyl estradiol [Sprintec (28)] 0.25-35 mg-mcg tablet 1 tab PO QDAY Qty: 84 RF: 3 omeprazole 20 mg capsule,delayed release(DR/EC) 20 mg PO BEDTIME Qty: 90 RF: 1 amitriptyline 10 mg tablet 30 mg PO DAILY 90 Days Qty: 270 RF: 0 Discharge Orders: Discharge ED (Routine); Ordered 08/12/20 Ordered By: Micaela Gutierrez Referrals: IVONE Zaragoza, PLATFORM SOFTWARE ENGINEER [Primary Care Provider] - Patient Instructions: Fractures - Knee, Opioid Safety Activity Restrictions/Additional Instructions: [facility] is committed to fighting the nationwide opiate epidemic. We are providing ALL patients with information regarding opiate safety. If you received opiate pain medication during your stay or if you received a prescription for opiate pain medication-please review this handout. If not, you may disregard. Thank you. As discussed case management should contact you shortly to set you up with your follow-up appointment with orthopedics. Stand Alone Forms: Work/School Release Coding Level of Care Code ED Key Account Representative for Bjorn Fwd Exam Expanded Problem Focused
--- NOTE | 2020-08-12 14:18 | DCPLANNER ---
clinical product manager had message to schedule a follow up appointment for patient with ortho for a right tibial spine fracture. clinical product manager called the ortho clinic, spoke with Gia, gave clinic patients information. clinical product manager was told that patients information would be printed and reviewed. Clinic will call patient with appointment information.
--- NOTE | 2020-08-18 14:29 | DCPLANNER ---
Patient had a follow up appointment scheduled for 08.18.20 with ortho - patient did attend appointment.
== END 2020-08-12 14:00 | disposition home or self-care (01) ==
PROVIDERS: Emergency Provider Physician Assistant; PCP Nurse Practitioner Family
DX: S82.114A Nondisplaced fracture of right tibial spine, initial encounter for closed fracture (principal); W18.09XA Striking against other object with subsequent fall, initial encounter
CPT/HCPCS: 29530; 73562; 99283; E0114

== ENCOUNTER 2020-09-02 13:33 | Outpatient (CLI) | payer OTHER, SELFPAY ==
--- NOTE | 2020-09-02 13:45 | MR_ITS ---
WS: [id number] MRI RIGHT KNEE NONCONTRAST TECHNIQUE: Axial PD, coronal PD fat sat, coronal PD, sagittal PD, and sagittal PD fat-sat images obta ined. CLINICAL INFORMATION: S82.114A - Nondisplaced fracture of right tibial spine, i... COMPARISON: Radiograph August 12, 2020 FINDINGS: Distal quadriceps and patella tendons are intact. High-grade complete tear of the ACL. No normal fibe rs visualized. Normal PCL. Small amount of contusion involving the posterior medial and posterior lateral tibial plateau. Chroni c thinning of the medial and lateral meniscus. Chronic intrasubstance signal abnormality involving th e posterior horn medial meniscus. Lateral meniscus is intact. No acute appearing meniscal tears. Mild chondromalacia patella. Medial and lateral patellar retinacula appear intact. Small suprapatella r effusion. Small tibial spine avulsion better visualized on the radiograph. Normal ACL and PCL. Norm al popliteal fossa. MR/MR knee RT wo con* [id number] IMPRESSION: 1. High-grade complete tear of the ACL with no normal fibers visualized. Yadira l PCL. 2. Chronic thinning of the medial and lateral meniscus with chronic intrasubst ance signal abnormality posterior horn medial meniscus. No acute appearing meni scal tears. 3. Medial and lateral collateral ligaments appear intact. 4. Small suprapatellar effusion.Small amount of contusion involving the farm equipment engineer ior medial and posterior lateral tibial plateau. 5. Mild prepatellar and infrapatellar soft tissue edema. Outbridge grading:
== END 2020-09-02 13:34 | disposition home or self-care (01) ==
LOC: RADSHAW 13:34
PROVIDERS: PCP Nurse Practitioner Family; Visit Provider Specialist
DX: S82.114A Nondisplaced fracture of right tibial spine, initial encounter for closed fracture (principal); S83.511A Sprain of anterior cruciate ligament of right knee, initial encounter; X58.XXXA Exposure to other specified factors, initial encounter; R60.0 Localized edema; M25.461 Effusion, right knee
CPT/HCPCS: 73721

== ENCOUNTER 2020-09-08 14:11 | Outpatient (CLI) | payer OTHER, SELFPAY | END 2020-09-08 14:12 | disposition home or self-care (01) | LOC: SPT 14:12 | PROVIDERS: PCP Nurse Practitioner Family; Visit Provider Specialist | DX: Z46.89 Encounter for fitting and adjustment of other specified devices (principal); M25.561 Pain in right knee; S83.511D Sprain of anterior cruciate ligament of right knee, subsequent encounter; X58.XXXD Exposure to other specified factors, subsequent encounter | CPT/HCPCS: 97760; L1832 ==

== ENCOUNTER 2020-09-28 06:00 | Outpatient (RCR) | payer OTHER, SELFPAY | END 2020-10-16 23:59 | disposition home or self-care (01) | LOC: WPT 06:00 | PROVIDERS: PCP Nurse Practitioner Family; Referring Provider Orthopaedic Surgery; Visit Provider Orthopaedic Surgery | DX: S83.511D Sprain of anterior cruciate ligament of right knee, subsequent encounter (principal); X58.XXXD Exposure to other specified factors, subsequent encounter | CPT/HCPCS: 97110; 97140; 97161; 97530 ==

== ENCOUNTER 2020-10-17 06:00 | Outpatient (RCR) | payer OTHER, SELFPAY | END 2020-11-16 23:59 | disposition home or self-care (01) | LOC: WPT 06:00 | PROVIDERS: PCP Nurse Practitioner Family; Referring Provider Orthopaedic Surgery; Visit Provider Orthopaedic Surgery | DX: S83.519D Sprain of anterior cruciate ligament of unspecified knee, subsequent encounter (principal); X58.XXXD Exposure to other specified factors, subsequent encounter | CPT/HCPCS: 97110; 97112; 97530; 97760; L1812 ==

== ENCOUNTER → 2021-03-21 15:59 | Outpatient (BNVA) | payer OTHER, SELFPAY | PROVIDERS: PCP Nurse Practitioner Family; Visit Provider Nurse Practitioner Family | DX: R35.0 Frequency of micturition (principal) | CPT/HCPCS: 81003 ==

== ENCOUNTER → 2021-03-25 09:46 | Outpatient (BNVA) | payer OTHER, SELFPAY | PROVIDERS: PCP Nurse Practitioner Family; Visit Provider Nurse Practitioner Family | DX: Z13.6 Encounter for screening for cardiovascular disorders (principal); E55.9 Vitamin D deficiency, unspecified; K21.9 Gastro-esophageal reflux disease without esophagitis; Z79.899 Other long term (current) drug therapy | CPT/HCPCS: 80053; 80061; 82306; 83036; 84443; 85025 ==

== ENCOUNTER 2021-04-06 00:26 | Emergency (ER) | payer OTHER, SELFPAY ==
--- NOTE | 2021-04-06 00:28 | XRR_ITS ---
PROCEDURE INFORMATION: Exam: XR Chest Exam date and time: 04/06/2021 12:28 AM Age: 41 years old Clinical indication: Chest pressure; Prior surgery; Surgery type: Gb; Patient HX: C/O central chest pain. ; Additional info: Cp TECHNIQUE: Imaging protocol: XR of the chest. Views: 1 view. COMPARISON: No relevant prior studies available. FINDINGS: Lungs: Unremarkable. No consolidation. Pleural spaces: Unremarkable. No pleural effusion. No pneumothorax. Heart/Mediastinum: Unremarkable. No cardiomegaly. Bones/joints: No acute findings. XR/XR chest 1V portable [id number] IMPRESSION: No acute findings.
--- NOTE | 2021-04-06 00:28 | ECG_ITS ---
[facility] Test Date: 2021-04-06 Pat Name: Yanni Rocha Department: Room: Gender: Female Nitrocellulose Maker: : 1980 Requested By: Tim Casanova Order Number: [id number] Harjinder MD: Shanon Norman M.D. Measurements Intervals [place] Rate: 108 P: 58 [place]: 136 QRS: 16 QRSD: 91 T: 55 QT: 326 QTc: 438 Interpretive Statements SINUS TACHYCARDIA POSSIBLE LEFT ATRIAL ENLARGEMENT [-0.1mV P-WAVE IN V1/V2] LOW QRS VOLTAGE IN PRECORDIAL LEADS [QRS DEFLECTION < 1.0 mV IN CHEST LEADS] INCOMPLETE RIGHT BUNDLE BRANCH BLOCK [90+ ms QRS DURATION, TERMINAL R IN V1/V2, 40+ ms S IN I/aVL/V4/V5/V6] ABNORMAL RHYTHM ECG No previous ECG available for comparison Electronically Signed On 04-06-2021 17:45:10 OUTSIDE MEDICAL SALES REPRESENTATIVE by Shanon Norman M.D. [email or web address]
[2021-04-06 00:33] VITALS: BP 149/108; PULSE 110; RESP 18; TEMP 36.9; O2SAT 98; BMI 48.6
--- NOTE | 2021-04-06 00:40 | W.ED.CHESTPA ---
HPI - Chest Pain General: Chief Complaint: Chest Pain Stated Complaint: Chest Pain Time Seen by Provider: 04/06/21 00:27 Source: patient Mode of arrival: ambulatory Limitations: no limitations History of Present Illness: HPI narrative: 41-year-old female states that she was in an argument with her boyfriend mari about 8 PM states got very heated she started having chest pain and palpitations states she had panic attacks in the past but she still having pain that do not typically last this long. She has pain in the center of her chest that is fanned out to her shoulders states she still has palpitations as well denies any shortness of breath denies any worsening improving factors. Associated symptoms: Reports nausea; Deny dyspnea or fever(s) Review of Systems Const: Denies: fever(s), chills, body aches or change in appetite Eyes: Denies: blurry vision or eye discomfort ENMT: Denies: throat pain or dental pain Card: Reports: chest pain Resp: Denies: dyspnea GI: Reports: nausea : Denies: dysuria Musc: Denies: neck pain or back pain Skin/Breast: Denies: rash Neuro: Denies: headache(s) Psych: Denies: depression [place]/Lymph: Denies: easy bruising All/Imm: Denies: urticaria PFSH ED PFSH: Medical History Acute bacterial sinusitis Depression with anxiety Gastro-esophageal reflux disease without esophagitis GERD (gastroesophageal reflux disease) Hypertension screen Insomnia Lower respiratory infection Medication management Post-cholecystectomy syndrome Recurrent tonsillitis Skin lesions Urinary frequency Vitamin D deficiency Surgical History Status post laparoscopic cholecystectomy (~05/2019) Family History Brother CAD (coronary artery disease) Mother Hemochromatosis Other Heart disease Social History Smoking and tobacco status: never smoked Alcohol intake: never Female Reproductive History: Date of last menstrual period: 03/11/21 Spontaneous abortions: No Physical Exam Const: COMMON NORMALS: no acute distress, patient oriented x3 and healthy appearing HENMT: COMMON NORMALS: normocephalic and atraumatic HEAD & SCALP: normocephalic and atraumatic Eye: COMMON NORMALS: Equal, round and reactive pupils present and EOMs intact bilaterally PUPIL: Yes Equal, round and reactive pupils present Neck/C-Spine: COMMON NORMALS: full ROM and supple Chest: COMMONS NORMALS: normal inspection of the chest and normal palpation of entire chest wall Resp: COMMON NORMALS: normal respiratory effort, No retractions, No use of accessory muscles and clear to auscultation bilaterally AUSCULTATION: clear to auscultation bilaterally Cardio: COMMON NORMALS: regular rhythm and No murmurs present (Cardio) RATE: tachycardic RHYTHM: regular rhythm GI: COMMON NORMALS: Normal to inspection, nondistended, normoactive bowel sounds present, Soft to palpation, non-tender and no masses PALPATION: Yes Soft to palpation Extremity: COMMON NORMALS: normal to inspection and full ROM Neuro: COMMON NORMALS: patient oriented x3, moves all extremities and no focal motor deficits Psych: COMMON NORMALS: mental status grossly normal, Normal thought process present and cooperative THOUGHT PROCESS: Normal thought process present Skin: COMMON NORMALS: no rashes or lesions noted and no wounds GENERAL SKIN EXAM: no rashes or lesions noted Course Vital Signs: Vital signs: Vital Signs Temperature 98.5 F 04/06/21 00:33 Pulse Rate 96 04/06/21 02:55 Respiratory Rate 18 04/06/21 02:55 Blood Pressure 146/99 04/06/21 02:55 Pulse Oximetry 95 04/06/21 02:55 MDM - Chest Pain MDM Narrative: Medical decision making narrative: Patient presents here with chest pain atypical in nature likely due to stress and getting an argument initial and repeat troponins are normal here EKG and x-rays are normal as well she is felt improved after Ativan she is stable for discharge is to follow-up with PCP and return if worsening she understands agrees to plan. Lab Data: Labs: Lab Results 04/06/21 04/06/21 04/06/21 01:00 01:00 01:00 WBC 10.9 10^3/uL H 10 ^3/uL (4.0-10.0) RBC 5.18 10^6/uL 10^6 /uL (4.1-5.3) Hgb 14.7 g/dL g/dL (11.5-15.3) Hct 44.2 % % (37.0-47.0) MCV 85.3 fl fl (81-99) MCH 28.4 pg pg (28.0-34.0) MCHC 33.3 g/dL g/dL (30.0-36.0) RDW 13.6 % % (12.1-15.1) Plt Count 301 10^3/cmm 10^3 /cmm (130-400) MPV 10.6 fL H fL (7.4-10.4) Neut % (Auto) 80.9 % % Lymph % (Auto) 15.9 % % Storey % (Auto) 2.4 % % Eos % (Auto) 0.3 % % Baso % (Auto) 0.2 % % Neut # (Auto) 8.83 10^3/uL H 10 ^3/uL (1.8-7.7) Lymph # (Auto) 1.7 10^3/uL 10^3/ uL (0.8-4.8) Storey # (Auto) 0.3 10^3/uL 10^3/ uL (0.2-0.9) Eos # (Auto) 0.0 10^3/uL 10^3/ uL (0.0-0.8) Baso # (Auto) 0.0 10^3/uL 10^3/ uL (0.0-0.1) Nucleated RBC % (a uto) 0 % % Nucleated RBCs # 0.0 /100WBC /100W BC Sodium 138 mmol/L mmol/L (136-145) Potassium 3.7 mmol/L mmol/L (3.5-5.1) Chloride 103 mmol/L mmol/L (98-107) Carbon Dioxide 20 mmol/L L mmol/ L (22-29) Anion Gap 18.7 (5-19) BUN 9 mg/dL mg/dL (6-20) Creatinine 0.8 mg/dL mg/dL (0.5-0.9) GFR Calculation 78.3 mL/min L mL/ min (90-130) Glucose 135 mg/dL H mg/dL (65-115) Calculated Osmolal ity 287 mOsm/kg mOsm/ kg (285-295) Calcium 9.5 mg/dL mg/dL (8.5-10.5) Total Bilirubin 0.2 mg/dL mg/dL (0.15-1.2) AST 13 U/L U/L (0-32) ALT 16 U/L U/L (0-33) Alkaline Phosphata se 86 IU/L IU/L (35-105) Troponin T Baselin e 6 ng/L ng/L (0-10) Troponin T 120 Min [place] Delta Troponin T Total Protein 7.9 g/dL g/dL (6.6-8.7) Albumin 3.9 g/dL g/dL (3.5-5.2) Globulin 4.0 g/dL g/dL (1.3-4.6) Lipase 24 U/L U/L (13-60) 04/06/21 02:50 WBC RBC Hgb Hct MCV MCH MCHC RDW Plt Count MPV Neut % (Auto) Lymph % (Auto) Storey % (Auto) Eos % (Auto) Baso % (Auto) Neut # (Auto) Lymph # (Auto) Storey # (Auto) Eos # (Auto) Baso # (Auto) Nucleated RBC % (a uto) Nucleated RBCs # Sodium Potassium Chloride Carbon Dioxide Anion Gap BUN Creatinine GFR Calculation Glucose Calculated Osmolal ity Calcium Total Bilirubin AST ALT Alkaline Phosphata se Troponin T Baselin e Troponin T 120 Min [place] 6.00 ng/L ng/L (0-10) Delta Troponin T 0 ABS# ABS# (0-10) Total Protein Albumin Globulin Lipase EKG Data^: EKG 1: Attestation: I personally reviewed and interpreted this EKG as follows: EKG interpretation date: 04/06/21 EKG interpretation time: 00:46 Interpretation: sinus tach hr [address] or t wave abnormalities qrs 91 qtc 389 Discharge Plan Discharge Patient Disposition: Home Clinical Impression: Chest pain Condition: Stable Prescriptions: No Action albuterol sulfate [ProAir HFA] 90 mcg/actuation HFA aerosol inhaler 2 puff inhalation QID PRN (Reason: shortness of breath or wheezing) 30 Days Qty: 8.5 RF: 0 CBD KIRK PO .AT BEDTIME RF: 0 amoxicillin-pot clavulanate [Augmentin] 875-125 mg tablet 1 tab PO BID 10 Days Qty: 20 RF: 0 Zenpep 40,000-126,000- 168,000 unit capsule,delayed release(DR/EC) See Rx Instructions .ROUTE .COMPLEX 30 Days Qty: 180 RF: 0 omeprazole 20 mg capsule,delayed release(DR/EC) 20 mg PO BEDTIME Qty: 90 RF: 1 norgestimate-ethinyl estradiol [Sprintec (28)] 0.25-35 mg-mcg tablet 1 tab PO QDAY Qty: 84 RF: 3 Discharge Orders: Discharge ED (Routine); Ordered 04/06/21 Ordered By: Tim Casanova Referrals: IVONE Zaragoza, PROPERTY COORDINATOR [Primary Care Provider] - 1-3 days Discharge Diet: Advance as tolerated Discharge Activity: Resume usual activity Patient Instructions: Opioid Safety Coding Level of Care Code ED School Business Manager for Bjorn Fwd Exam Comprehensive
[2021-04-06] MEDS: LORazepam 2 mg/mL INJ 1 mL 1 MG IVP (01:05)
[2021-04-06 01:29] LABS: Basophils % 0.2 %; Eosinophils % 0.3 %; Hematocrit 44.2 % (37.0-47.0); Hemoglobin 14.7 g/dL (11.5-15.3); Lymphocytes # 1.7 10^3/uL (0.8-4.8); Lymphocytes % 15.9 %; Mean Corpuscular HGB Conc 33.3 g/dL (30.0-36.0); Mean Corpuscular Hemoglobin 28.4 pg (28.0-34.0); Mean Corpuscular Volume 85.3 fl (81-99); Mean Platelet Volume 10.6 fL (7.4-10.4); Monocytes # 0.3 10^3/uL (0.2-0.9); Monocytes % 2.4 %; Neutrophils # 8.83 10^3/uL (1.8-7.7); Neutrophils % 80.9 %; Nucleated Red Blood Cells % 0 %; Platelet Count 301 10^3/cmm (130-400); Red Blood Count 5.18 10^6/uL (4.1-5.3); Red Cell Distribution Width 13.6 % (12.1-15.1); White Blood Count 10.9 10^3/uL (4.0-10.0)
[2021-04-06 01:45] LABS: Alanine Aminotransferase 16 U/L (0-33); Albumin Level 3.9 g/dL (3.5-5.2); Alkaline Phosphatase 86 IU/L (35-105); Anion Gap 18.7 (5-19); Aspartate Amino Transferase 13 U/L (0-32); Blood Urea Nitrogen 9 mg/dL (6-20); Calcium 9.5 mg/dL (8.5-10.5); Carbon Dioxide 20 mmol/L (22-29); Chloride 103 mmol/L (98-107); Glomerular Filtration Rate 78.3 mL/min (90-130); Glucose 135 mg/dL (65-115); Lipase 24 U/L (13-60); Osmolality Calculated 287 mOsm/kg (285-295); Potassium 3.7 mmol/L (3.5-5.1); Sodium 138 mmol/L (136-145); Total Bilirubin 0.2 mg/dL (0.15-1.2); Total Protein 7.9 g/dL (6.6-8.7); Troponin(5th) Baseline 6 ng/L (0-10)
--- NOTE | 2021-04-06 02:54 | PC.NURSE ---
reinaldo resting comfortably in bed at this time. patients 2 hour troponin drawn and sent to lab. jennynet in no obivous distress.
[2021-04-06 02:55] VITALS: BP 146/99; PULSE 96; RESP 18; O2SAT 95
[2021-04-06 03:15] LABS: Troponin 5 2HR Delta 0 ABS# (0-10)
[2021-04-06 03:34] VITALS: BP 129/89; PULSE 96; RESP 18; TEMP 36.7; O2SAT 95
== END 2021-04-06 03:36 | disposition home or self-care (01) ==
PROVIDERS: Emergency Provider Emergency Medicine; PCP Nurse Practitioner Family
DX: R07.9 Chest pain, unspecified (principal); Z63.0 Problems in relationship with spouse or partner; K21.9 Gastro-esophageal reflux disease without esophagitis; Z82.49 Family history of ischemic heart disease and other diseases of the circulatory system
CPT/HCPCS: 71045; 80053; 83690; 84484; 85025; 93005; 96374; 99283; J2060

== ENCOUNTER → 2021-10-07 09:44 | Outpatient (BNVA) | payer OTHER, SELFPAY | PROVIDERS: PCP Nurse Practitioner Family; Visit Provider Nurse Practitioner | DX: Z79.899 Other long term (current) drug therapy (principal); E55.9 Vitamin D deficiency, unspecified; Z13.6 Encounter for screening for cardiovascular disorders; F41.9 Anxiety disorder, unspecified; K91.5 Postcholecystectomy syndrome | CPT/HCPCS: 80053; 80061; 81000; 82306; 85025 ==

== ENCOUNTER → 2021-11-10 11:40 | Outpatient (BNVA) | payer OTHER, SELFPAY | PROVIDERS: PCP Nurse Practitioner Family; Visit Provider Nurse Practitioner | DX: Z79.899 Other long term (current) drug therapy (principal); J02.0 Streptococcal pharyngitis; F41.9 Anxiety disorder, unspecified | CPT/HCPCS: 80053 ==

== ENCOUNTER 2022-01-05 06:27 | Outpatient (CLI) | payer OTHER, SELFPAY ==
--- NOTE | 2022-01-05 06:15 | US_ITS ---
WS: [id number] RENAL ULTRASOUND URINARY BLADDER ULTRASOUND HISTORY: decreased GFR COMPARISON: None available. TECHNIQUE: 2-D and color Doppler imaging of the kidney submitted. Right kidney: 10.9 cm x 3.8 cm x 4.9 cm. Normal echogenicity with no hydronephrosis or mass. Mild thinning of the renal cortex to 1.0 cm. Left kidney: 11.8 cm x 4.7 cm x 4.3 cm. Normal echogenicity with no hydronephrosis or mass. Mild thinning of the renal cortex to 0.9 cm. Aorta: Normal. Urinary Bladder: Normally distended urinary bladder. Prevoid volume is 30 mL. There is no significant post void volume. US/US renal BI* [id number] IMPRESSION: 1. No hydronephrosis. 2. Mild bilateral cortical renal thinning. 3. Negative urinary bladder. No post void residual.
== END 2022-01-05 06:28 | disposition home or self-care (01) ==
LOC: RAD 06:28
PROVIDERS: PCP Nurse Practitioner; Visit Provider Nurse Practitioner
DX: R94.4 Abnormal results of kidney function studies (principal)
CPT/HCPCS: 76770

== ENCOUNTER → 2022-03-16 11:20 | Outpatient (BNVA) | payer SELFPAY | PROVIDERS: PCP Nurse Practitioner; Visit Provider Nurse Practitioner | DX: R69 Illness, unspecified (principal) | CPT/HCPCS: 87400 ==

== ENCOUNTER → 2022-05-01 13:17 | Outpatient (BNVA) | payer BC, SELFPAY | PROVIDERS: PCP Nurse Practitioner; Visit Provider Nurse Practitioner | DX: J02.9 Acute pharyngitis, unspecified (principal) | CPT/HCPCS: 86308; 87400; 87880 ==

== ENCOUNTER → 2024-01-22 09:54 | Outpatient (BNVA) | payer BC, SELFPAY | PROVIDERS: PCP Nurse Practitioner Family; Visit Provider Nurse Practitioner Family | DX: Z13.6 Encounter for screening for cardiovascular disorders (principal); E55.9 Vitamin D deficiency, unspecified; Z78.0 Asymptomatic menopausal state; Z79.899 Other long term (current) drug therapy | CPT/HCPCS: 80053; 80061; 81003; 82306; 83036; 84443; 85025 ==

== ENCOUNTER → 2024-02-19 14:45 | Outpatient (BNVA) | payer BC, SELFPAY | PROVIDERS: PCP Nurse Practitioner Family; Visit Provider Nurse Practitioner Family | DX: R05.9 Cough, unspecified (principal) | CPT/HCPCS: 87400; 87426 ==

== ENCOUNTER 2024-03-13 21:45 | Emergency (ER) | payer BC, SELFPAY ==
[2024-03-13 21:57] VITALS: BP 139/109; PULSE 100; RESP 16; TEMP 36.7; O2SAT 100
--- NOTE | 2024-03-13 22:16 | XRR_ITS ---
PROCEDURE INFORMATION: Exam: XR Left Foot Exam date and time: 03/13/2024 10:58 PM Age: 44 years old Clinical indication: Injury or trauma; Fall; Blunt trauma; Injury details: History--pt states she slipped on the dog bed while on her way into her house and twisted her left ankle backwards. PT reports numbness and tingling in that foot. Left calf pain as well. ; Additional info: Severe pain, twisting injury TECHNIQUE: Imaging protocol: Radiologic exam of the left foot. Views: 3 or more views. COMPARISON: CR (LOW EXM, ) 03/13/2024 10:58 PM FINDINGS: Bones/joints: Osseous fragment measuring 1.7 cm overlying the Achilles tendon with irregular inferior edge. An additional mineral density measuring 1.8 cm is noted plantar aspect of the foot. Soft tissues: Medial ankle soft tissue swelling. XR/XR foot LT min 3V* [id number] IMPRESSION: 1. Osseous fragment overlying the Achilles tendons, incompletely evaluated. This may represent tendon calcification but given an irregular inferior edge, it is somewhat suspicious for an acute avulsion type injury involving the Achilles insertion site on the calcaneus. 2. The mineral density noted at the plantar aspect of the foot is also incompletely evaluated. This could represent sequelae of an old injury or soft tissue calcification. Recommend CT correlation for the above findings.
--- NOTE | 2024-03-13 22:16 | XRR_ITS ---
PROCEDURE INFORMATION: Exam: XR Left Ankle Exam date and time: 03/13/2024 10:58 PM Age: 44 years old Clinical indication: Injury or trauma; Fall; Blunt trauma; Injury details: History--pt states she slipped on the dog bed while on her way into her house and twisted her left ankle backwards. PT reports numbness and tingling in that foot. Left calf pain as well. ; Additional info: Severe pain, twisting injury TECHNIQUE: Imaging protocol: Radiologic exam of the left ankle. Views: 3 or more views. COMPARISON: CR XR foot LT min 3V* [id number] 03/13/2024 10:58 PM FINDINGS: Bones/joints: Osseous fragment measuring 1.7 cm overlying the Achilles tendon with irregular inferior edge. An additional mineral density measuring 1.8 cm is noted plantar aspect of the foot. Soft tissues: Medial ankle soft tissue swelling. XR/XR ankle LT min 3V* [id number] IMPRESSION: 1. Osseous fragment overlying the Achilles tendons, incompletely evaluated. This may represent tendon calcification but given an irregular inferior edge, it is somewhat suspicious for an acute avulsion type injury involving the Achilles insertion site on the calcaneus. 2. The mineral density noted at the plantar aspect of the foot is also incompletely evaluated. This could represent sequelae of an old injury or soft tissue calcification. Recommend CT correlation for the above findings.
[2024-03-13] MEDS: HYDROcodone-acetaminophen 5-325 mg Tablet 1 TAB PO (22:39)
[2024-03-13 22:40] VITALS: BP 131/79; PULSE 93; RESP 16; O2SAT 98
--- NOTE | 2024-03-13 23:39 | ED_ITS ---
HPI - Extremity Problem General: Chief complaint: Extremity Injury, Lower Stated complaint: Lt ankle inj Time Seen by Provider: 03/13/24 21:46 Source: patient Mode of arrival: wheelchair Limitations: no limitations History of Present Illness: Patient is a 44-year-old female who presents to the emergency department complaining of left foot and ankle pain couple of hours prior to arrival. Patient states she tripped over a dog bed and one of her children's pair shoes, and this caused her entire foot to go beneath her and she is reporting pain extending from foot all the way up to the calf. States that she heard a loud pop in the calcaneal/heel region. No prior surgeries or injuries. Reporting severe 10/10 pain, has not attempted to put weight secondary to the pain. Stating her left foot feels numb. MD Complaint: extremity pain and joint pain Onset (ago): hour(s) Pain Consistency: constant Location: left and lower extremity Severity scale (1-10): 10 Radiation: proximal Exacerbating factors: range of motion, weight bearing, walking and exertion Associated symptoms: Deny chest pain, fever(s) or rash Related Data Home Medications Medication Instructions Recorded Confirmed ascorbic acid (vitamin C) 1,000 mg 1 g PO DAILY 10/02/23 02/19/24 capsule magnesium chloride 64 mg mg PO .every other day 10/02/23 02/19/24 (magnesium chloride) tablet estradiol 0.01% (0.1 mg/gram) 1 appful vaginal DAILY 01/22/24 02/19/24 vaginal cream Previous Rx's Medication Instructions Recorded buspirone 10 mg tablet 10 mg PO BID #180 tabs 05/23/23 phentermine 37.5 mg capsule 37.5 mg PO DAILY 30 days #30 caps 01/28/24 amoxicillin 875 mg-potassium 1 tab PO BID 7 days #14 tabs 02/25/24 clavulanate 125 mg tablet topiramate 25 mg tablet See Rx Instructions .Route 02/25/24 .COMPLEX #30 tabs Allergies Allergy/AdvReac Type Severity Reaction Status Date / Time fluconazole [From Diflucan] AdvReac ADR-Abdominal Verified 02/19/24 14:37 Pain ondansetron [From Zofran] AdvReac migraine Verified 02/19/24 14:37 headache Review of Systems General: Reports: 10 or more systems reviewed and unremarkable except in HPI and below Const: Denies: fever(s) or chills Card: Denies: chest pain Resp: Denies: dyspnea or productive cough GI: Denies: abdominal pain, nausea, vomiting or diarrhea : Denies: flank pain Musc: Reports: extremity pain (Left lower) and joint pain (Left lower); Denies: neck pain, back pain, extremity swelling, joint swelling, joint redness, joint warmth, limited range of motion or muscle weakness Skin/Breast: Denies: rash Neuro: Reports: numbness in extremities (Left lower); Denies: headache(s) or weakness in extremities PFSH ED PFSH: Medical History Upper respiratory infection Obesity Breast cancer screening by mammogram Postmenopausal ACL (anterior cruciate ligament) tear Knee pain Gastro-esophageal reflux disease without esophagitis Hypertension screen Medication management Vitamin D deficiency Urinary frequency Post-cholecystectomy syndrome Skin lesions Acute bacterial sinusitis Lower respiratory infection Recurrent tonsillitis Insomnia GERD (gastroesophageal reflux disease) Depression with anxiety Surgical History S/P total abdominal hysterectomy Status post laparoscopic cholecystectomy (~05/2019) Family History Brother CAD (coronary artery disease) Mother Hemochromatosis Other Heart disease Social History Smoking and tobacco/nicotine status: never used tobacco/nicotine Alcohol intake: never Substance/Drug Use: never Female Reproductive History: Spontaneous abortions: No Physical Exam Const: COMMON NORMALS: no acute distress, patient oriented x3, no limitations, healthy appearing, alert and well nourished HENMT: COMMON NORMALS: normocephalic and atraumatic HEAD & SCALP: normocephalic and atraumatic Neck/C-Spine: COMMON NORMALS: full ROM, supple and no meningeal signs Extremity: COMMON NORMALS: normal to inspection, full ROM, capillary refill normal, no joint enlargement and no clubbing, cyanosis or edema NARRATIVE EXTREMITY EXAM: Diffuse tenderness to palpation of the left foot. DP/PT pulses intact. Tenderness to palpation to the Achilles heel, no significant tenderness to the medial or lateral malleoli. Endorsing some distal numbness to the dorsum of the left foot. Pain with any range of motion at the toes and at the ankle. No obvious signs of fracture, no dislocation. Positive Tang's test on the left. Palpable bony fragment to the left Achilles, there is severe reproducible tenderness to palpation here. Neuro: COMMON NORMALS: patient oriented x3, moves all extremities and no focal motor deficits SENSORIUM/ORIENTATION: Yes alert MENINGEAL SIGNS: Yes no meningeal signs Skin: COMMON NORMALS: no rashes or lesions noted GENERAL SKIN EXAM: no rashes or lesions noted Course Vital Signs: Vital signs: Vital Signs Temperature 98.1 F 03/13/24 21:57 Pulse Rate 89 03/13/24 23:51 Respiratory Rate 16 03/13/24 23:51 Blood Pressure 126/69 03/13/24 23:51 Pulse Oximetry 100 03/13/24 23:51 Oxygen Delivery Me thod Room Air 03/13/24 23:51 MDM - Extremity (Nontraumatic) Medical Decision Making Patient presented after injuring her left ankle. X-ray showing findings that are indeterminate of age, however most likely acute with the amount of traumatic injury reported. She had positive Tang's test that make me suspicious of Achilles pathology, spoke with Dr. Cruz who recommends strict nonweightbearing with the splint and that she can follow-up in the office for further evaluation. Relayed this to the patient, she agrees pain controlled with [place] here in the emergency department. Her distal neurovascular exam was intact. XR interpretation done by ED provider, pending radiology final review ED provider radiology interpretation(s): X-ray left foot not demonstrating any significant acute findings. X-ray of left ankle showing bony fragment in the Achilles region of indeterminant age, likely acute on chronic as this is where the most tenderness is. Potentially etiology of this includes a calcaneal avulsion injury or Achilles tendon rupture. Discharge Plan Discharge Patient Disposition: Home Clinical Impression: Avulsion injury of left ankle region Condition: Stable Prescriptions: No Action buspirone 10 mg tablet 10 mg PO BID Qty: 180 3RF ascorbic acid (vitamin C) 1,000 mg capsule 1 g PO DAILY magnesium chloride 64 mg magnesium tablet PO .every other day estradiol 0.01 % (0.1 mg/gram) cream 1 appful vaginal DAILY Rx Instructions: for 14 days phentermine 37.5 mg capsule 37.5 mg PO DAILY 30 Days Qty: 30 0RF Rx Instructions: must administer 30 minutes before or 1-2 hours after breakfast amoxicillin-pot clavulanate 875-125 mg tablet 1 tab PO BID 7 Days Qty: 14 0RF topiramate 25 mg tablet See Rx Instructions .ROUTE .COMPLEX Qty: 30 0RF Dose Instruction: TAKE 1 TABLET BY MOUTH EVERY DAY Rx Instructions: TAKE 1 TABLET BY MOUTH EVERY DAY Discharge Orders: Discharge ED (Routine); Ordered 03/14/24 Ordered By: Rajan Arce Referrals: IVONE Zaragoza, SANDBLAST OR SHOTBLAST EQUIPMENT TENDER [Primary Care Provider] - Patient Instructions: Achilles Tendon Rupture (ED), Calcaneal Fracture (ED) Activity Restrictions/Additional Instructions: Follow-up with podiatry tomorrow. Crutches and nonweightbearing as discussed. Alternate ibuprofen and Tylenol until following up. Elevate the extremity. Return with any new or worsening. Coding Level of Care Code ED Assistant Operator for Bjorn José
[2024-03-13 23:51] VITALS: BP 126/69; PULSE 89; RESP 16; O2SAT 100
[2024-03-14 00:51] VITALS: BP 128/82; PULSE 84; RESP 16; O2SAT 98
[2024-03-14] MEDS: HYDROcodone-acetaminophen 5-325 mg Tablet 1 TAB PO (01:28)
[2024-03-14 01:29] VITALS: BP 140/94; PULSE 90; RESP 16; O2SAT 97
--- NOTE | 2024-03-14 05:17 | DCPLANNER ---
Message sent to podiatry for left ankle injury
== END 2024-03-14 01:30 | disposition home or self-care (01) ==
PROVIDERS: Emergency Provider Physician Assistant; PCP Nurse Practitioner Family
DX: S99.812A Other specified injuries of left ankle, initial encounter (principal); W22.8XXA Striking against or struck by other objects, initial encounter
CPT/HCPCS: 29515; 73610; 73630; 99283; A4590

== ENCOUNTER 2024-03-19 06:30 | Outpatient (CLI) | payer BC, SELFPAY | END 2024-03-19 06:31 | LOC: SPT 04-18 08:40 | PROVIDERS: Visit Provider Podiatrist Foot & Ankle Surgery | DX: Z46.89 Encounter for fitting and adjustment of other specified devices (principal); S92.032 Displaced avulsion fracture of tuberosity of left calcaneus; X58.XXXS Exposure to other specified factors, sequela | CPT/HCPCS: L3170; L4361 ==

== ENCOUNTER 2024-03-24 09:24 | Day surgery (SDC) | payer BC, SELFPAY ==
[2024-03-24] VITALS (11 sets, daily range): BP systolic 121–149; BP diastolic 73–101; PULSE 69–93; RESP 13–25; TEMP 36.1–36.5; O2SAT 96–100; BMI 36.3
--- NOTE | 2024-03-24 10:02 | W.PM.OPSUD ---
Surgery/Procedure H&P Update DATE OF PROCEDURE: March 24, 2024 DATE H&P PERFORMED: 03/17/24 H&P UPDATE INFORMATION: I have reviewed H&P completed within last 30 days, I have examined patient prior to procedure, No changes to prior documentation and H&P is in [facility] EMR on date indicated PREOP DIAGNOSIS: Left achilles rupture PLANNED PROCEDURE: Operation Date: 03/24/24 10:45 Proposed Procedures p Achilles Tendon Repair(Left) - Rajan Patterson DPM s Excision partial Left calcaneus(Left) - Rajan Patterson DPM
[2024-03-24] MEDS: scopolamine 1.5 Patch 1 PATCH TRANSDERMA (10:08)
[2024-03-24] MEDS: sodium chloride 0.9% 1,000 ML 30 ML IV (10:08)
[2024-03-24] MEDS: acetaminophen 1,000 MG/100 ML PIGGYBACK 400 MG IV (10:08)
[2024-03-24] MEDS: gabapentin 300 mg Capsule PO (10:09)
[2024-03-24] MEDS: ceFAZolin 2,000 mg SDV 2000 MG IVP (10:18)
--- NOTE | 2024-03-24 12:18 | P.BOP_ITS ---
Date of procedure: 03/24/2024 Surgeon name: Dr. Rajan Patterson D.P.M. Journeyman Electrician(s) name(s): Aparna Kothari Procedure(s) performed: Secondary repair left Achilles tendon with excision of partial calcaneus Description of findings: Rupture of Achilles tendon with avulsion fracture of calcaneus Estimated blood loss: 5 cc Tourniquet time: 70 minutes Specimen(s) removed: None Post-operative diagnosis: Left Achilles tendon rupture and avulsion fracture of calcaneus left
[2024-03-24] MEDS: fentaNYL 50 mcg/mL INJ 2mL IVP (12:33)
[2024-03-24] MEDS: HYDROcodone-acetaminophen 10-325 mg Tablet 1 TAB PO (13:21)
--- NOTE | 2024-03-24 13:51 | ANES.PREANE2 ---
Pre-Anesthetic Assessment Height/Weight: Height 1.68 m Weight 102.058 kg Temp Pulse Resp BP Pulse Ox O2 Del Method 97.7 F 71 17 121/91 96 Room Air 03/24/24 12:49 03/24/24 13:29 03/24/24 13:29 03/24/24 13:29 03/24/24 13:29 03/24/24 13:29 Preop Diagnosis: Left achilles rupture Operation Date: 03/24/24 10:45 Proposed Procedures p Achilles Tendon Repair(Left) - Rajan Patterson DPM s Excision partial Left calcaneus(Left) - Rajan Patterson DPM Familial anesthetic complications: PONV Was Beta Humza taken within 24 hours: N/A Was Clonidine taken within 24 hours: N/A Last intake: Intake Last Liquid Date 03/23/24 Last Liquid Time 23:45 Last Solid Date 03/23/24 Last Solid Time 22:30 Social No alcohol and No tobacco Exam alert, oriented x 3, clear to auscultation bilaterally and regular rate & rhythm Airway Submandibular: within normal limits Cervical ROM: within normal limits Mallampati: Class II Dentition: full Metabolic Morbid Obesity Neuropsych Anxiety and Depression Anesthetic Plan ASA status: 2 Anesthesia: General and Regional (specify below) (left popliteal blk) Medications/Allergies Home Medications Medication Instructions Recorded Confirmed Last Taken Type buspirone 10 mg tablet 10 mg PO BID #180 tabs 05/23/23 03/20/24 03/23/24 Rx ascorbic acid (vitamin C) 1,000 mg 1 g PO DAILY 10/02/23 03/20/24 03/20/24 History capsule estradiol 0.01% (0.1 mg/gram) 1 appful vaginal DAILY 01/22/24 03/20/24 Unknown History vaginal cream phentermine 37.5 mg capsule 37.5 mg PO DAILY 30 days #30 caps 01/28/24 03/20/24 03/06/24 Rx hydrocodone 5 mg-acetaminophen 325 1 tab PO Q8H PRN pain 7 days #21 03/14/24 03/24/24 03/23/24 Rx mg tablet tabs diphenhydramine HCl 25 mg tablet 25 mg PO DAILY 03/20/24 03/20/24 Unknown History (Benadryl Allergy) magnesium 200 mg tablet 400 mg PO DAILY 03/20/24 03/20/24 Unknown History topiramate 25 mg tablet 25 mg PO DAILY 03/20/24 03/20/24 03/06/24 History hydrocodone 10 mg-acetaminophen 1 tab PO Q6H PRN pain #28 tabs 03/24/24 Unknown Rx 325 mg tablet Allergies Allergy/AdvReac Type Severity Reaction Status Date / Time fluconazole [From Diflucan] AdvReac ADR-Abdominal Verified 03/17/24 13:24 Pain ondansetron [From Zofran] AdvReac migraine Verified 03/17/24 13:24 headache Current Medications Generic Name Dose Route Start Last Admin Trade Name Freq PRN Reason Stop Dose Admin Fentanyl 50 mcg 03/24/24 11:53 03/24/24 12:33 Fentanyl 50 Mcg/Ml Inj 2ml IVP 03/25/24 11:53 50 mcg Q5M PRN Administration Pain level 6-10 PACU Phase I Sodium Chloride 1,000 mls @ 30 mls/hr 03/24/24 09:30 03/24/24 10:08 Sodium Chloride 0.9% IV 03/25/24 09:29 30 mls/hr .Q24H MERNA Administration PFSH Anesthesia Medical History Upper respiratory infection Obesity Breast cancer screening by mammogram Postmenopausal ACL (anterior cruciate ligament) tear Knee pain Gastro-esophageal reflux disease without esophagitis Hypertension screen Medication management Vitamin D deficiency Urinary frequency Post-cholecystectomy syndrome Skin lesions Acute bacterial sinusitis Lower respiratory infection Recurrent tonsillitis Insomnia GERD (gastroesophageal reflux disease) Depression with anxiety Surgical History S/P total abdominal hysterectomy Status post laparoscopic cholecystectomy (~05/2019) Family History Brother CAD (coronary artery disease) Mother Hemochromatosis Other Heart disease Social History Smoking and tobacco/nicotine status: never used tobacco/nicotine Alcohol intake: never Substance/Drug Use: never Female Reproductive History Spontaneous abortions: No Data Anesthesia Cardiac Studies: No Data to Display Anesthesia Procedures Nerve Block Nerve Block 1: Main Anesthesia: general anesthesia Time Out Performed: Yes Consent: requested by attending/covering physician, from patient, risks and benefits reviewed and patient agrees to proceed Nerve block location: popliteal (left) Anesthesia monitors applied: pulse oximetry, EKG, BP cuff and oxygen Nerve block position: other (prone) Anesthetic Used: ropivicaine 0.5% Amount of anesthesia used (mL): 30 Ultrasound used to: recognize landmarks Nerve Stimulator Used?: No Interscalene/Femoral BLK: 4 stimuplex 21 g needle used for position and inplane approach Injection: neg aspiration of heme Patient Tolerated Procedure: well Complications: none
--- NOTE | 2024-03-24 13:53 | ANE.PACU2 ---
Inpatient post-anesthesia follow up: Airway intact: Yes Vital signs: Temperature 97.7 F Pulse Rate 71 Respiratory Rate 17 Blood Pressure 121/91 Pulse Oximetry 96 Oxygen Delivery Me thod Room Air Oxygen Flow Rate Fraction of Inspir ed Oxygen Hydration adequate: Yes Nausea and vomiting: No Pain level: 1 Mental status: Baseline
--- NOTE | 2024-03-24 21:31 | P.OP_ITS ---
Operative Report Date of procedure: March 24, 2024 Surgeon: Rajan Patterson DPM Procedure: Date of procedure: 03/24/2024 Pre-op diagnosis: Left Achilles rupture, avulsion fracture calcaneus Post-op diagnosis: Same Post-op findings: Midsubstance rupture of Achilles tendon with avulsion fracture of posterior calcaneus Procedure done: 1. Secondary repair left Achilles tendon CPT 63879 2. Excision partial calcaneus left foot CPT 29507 Implants: 3.5 swivel lock anchor x 2 from [employer], amnion wrap [employer] Specimens removed: Calcaneus bone left Surgeon: Dr. Rajan Patterson DPM Doormaker: Aparna Kothari Estimated blood loss: 5 cc Tourniquet time: 70 minutes Complications: None Patient is a 44-year-old female that has a history of left Achilles tendon rupture. The extent of the injury necessitates repair of tendon and excision of fracture fragment. A lengthy discussion regarding the procedure, including risks and complications has been had with the patient and is noted in the recent clinic note. Written and verbal consent have been obtained. All patient questions have been answered to the patient?s satisfaction. No written or verbal guarantees have been given or implied. The patient has been NPO since midnight. The history has been reviewed and the history and physical is current. The signed consent was confirmed and placed in the patient chart. Patient imaging has been reviewed and is consistent with the diagnosis. Under mild sedation, the patient was brought into the operating room and placed on the table in the prone position. IV antibiotics were given by the anesthesia team as preoperative surgical prophylaxis. General sedation was then performed by the anesthesiateam. A popliteal block was performed by the anesthesia department. A pneumatic tourniquet was then placed about the left t high. The operative extremity was then prepped and draped in the usual fashion. The extremity was then elevated and exsanguinated before the tourniquet was inflated to 325 mmHg. After inflation, the following procedure was then performed. Attention was directed to the posterior aspect of the left heel where a positive Tang test was visualized under physical exam. A #15 blade was used to make an 8 cm incision over the midline of the Achilles tendon. Dissection was carried down through subcutaneous and superficial fascia to the peritenon which was incised to expose the underlying rupture of the Achilles tendon. There was noted to be a complete rupture of the Achilles tendon in the watershed area with mop-end appearance. Portion of calcaneus visualized within this watershed area. It appeared that the Achilles tendon had avulsed portion of posterior calcaneus proximally and through the body of the Achilles tendon causing rupture more proximally. 15 blade was used to debride the area of nonviable tissue in preparation for repair. An end-to-end repair was performed using Krak?w style suturing and gift box fashion using suture tape from [employer]. After the repair the tails of the suture tape were then tensioned distally and anchored into the posterior calcaneus using two 3.5 mm swivel lock anchors from [employer]. Good tension of the Achilles tendon was noted. Much improvement to plantarflexion of the ankle with calf squeeze. The repair was then wrapped with amnion wrap from [employer]. Attention was then directed to closure. Deep tissue was closed with 3-0 Vicryl followed by subcuticular closure with 4-0 Vicryl and skin closure with 3-0 nylon in horizontal mattress fashion. Incision site was dressed with Xeroform, 4 x 4 gauze, Kerlix before being placed in a well-padded below the knee posterior splint. The tourniquet was let down good hyperemic response was noted to digits of the left foot. The patient tolerated the procedure and anesthesia well and without complication. The patient was transported from the operating room to the recovery room with vital signs stable and vascular status intact to all digits of the left foot. The patient was given both written and verbal instructions to remain nonweightbearing to the operative extremity, to keep dressings/splint clean, dry and intact and to take pain medication as directed. The patient will follow-up in the outpatient setting at their scheduled appointment. The patient was discharged with my personal number and was instructed to call if any questions or issues should arise. They were discharged home once anesthesia criteria was met.
== END 2024-03-24 14:13 | disposition home or self-care (01) ==
PROVIDERS: PCP Nurse Practitioner Family; Visit Provider Podiatrist Foot & Ankle Surgery
PROC: (CPT 27650; principal; 2024-03-24 10:35)
PROC: (CPT 27654; 2024-03-24 10:35)
DX: S86.012A Strain of left Achilles tendon, initial encounter (principal); S92.002A Unspecified fracture of left calcaneus, initial encounter for closed fracture; X58.XXXA Exposure to other specified factors, initial encounter; E66.01 Morbid (severe) obesity due to excess calories; Z68.36 Body mass index [BMI] 36.0-36.9, adult
CPT/HCPCS: 27654; 28120; C1713; C1762; J0131; J0690; J1100; J2250; J2704; J2795; J3010; J3490; J7030

== ENCOUNTER → 2024-04-08 15:51 | Outpatient (BNVA) | payer BC, SELFPAY | PROVIDERS: PCP Nurse Practitioner Family; Visit Provider Podiatrist Foot & Ankle Surgery | DX: S92.032A Displaced avulsion fracture of tuberosity of left calcaneus, initial encounter for closed fracture (principal); M66.872 Spontaneous rupture of other tendons, left ankle and foot; X58.XXXA Exposure to other specified factors, initial encounter | CPT/HCPCS: 73630 ==

== ENCOUNTER 2024-05-17 06:30 | Outpatient (RCR) | payer BC, SELFPAY | END 2024-06-16 23:59 | disposition home or self-care (01) | LOC: APT 06:30 | PROVIDERS: Visit Provider Podiatrist Foot & Ankle Surgery | DX: Z98.890 Other specified postprocedural states (principal) | CPT/HCPCS: 97110; 97112; 97161; 97530 ==

== ENCOUNTER 2024-06-17 06:00 | Outpatient (RCR) | payer BC, SELFPAY | END 2024-07-16 23:59 | disposition home or self-care (01) | LOC: APT 06:00 | PROVIDERS: Visit Provider Podiatrist Foot & Ankle Surgery | DX: Z98.890 Other specified postprocedural states (principal) | CPT/HCPCS: 97110; 97112; 97116; 97140; 97530 ==

== ENCOUNTER 2024-07-17 05:00 | Outpatient (RCR) | payer BC, SELFPAY | END 2024-08-16 23:59 | disposition home or self-care (01) | LOC: APT 05:00 | PROVIDERS: PCP Nurse Practitioner Family; Visit Provider Podiatrist Foot & Ankle Surgery | DX: Z98.890 Other specified postprocedural states (principal) | CPT/HCPCS: 97110; 97112; 97530 ==

== ENCOUNTER 2024-08-17 05:00 | Outpatient (RCR) | payer BC, SELFPAY | END 2024-09-15 23:59 | disposition home or self-care (01) | LOC: APT 05:00 | PROVIDERS: PCP Nurse Practitioner Family; Visit Provider Podiatrist Foot & Ankle Surgery | DX: Z98.890 Other specified postprocedural states (principal) | CPT/HCPCS: 97110; 97112; 97530 ==

== ENCOUNTER 2024-08-26 10:12 | Outpatient (CLI) | payer BC, SELFPAY | END 2024-08-26 10:13 | disposition home or self-care (01) | LOC: SPT 10:12 | PROVIDERS: PCP Nurse Practitioner Family; Visit Provider Podiatrist Foot & Ankle Surgery | DX: Z46.89 Encounter for fitting and adjustment of other specified devices (principal); S92.032 Displaced avulsion fracture of tuberosity of left calcaneus; X58.XXXD Exposure to other specified factors, subsequent encounter; M66.872 Spontaneous rupture of other tendons, left ankle and foot | CPT/HCPCS: L3030 ==

== ENCOUNTER 2024-09-16 05:00 | Outpatient (RCR) | payer BC, SELFPAY | END 2024-10-16 23:59 | disposition home or self-care (01) | LOC: APT 05:00 | PROVIDERS: PCP Nurse Practitioner Family; Visit Provider Podiatrist Foot & Ankle Surgery | DX: Z98.890 Other specified postprocedural states (principal) | CPT/HCPCS: 97110; 97530 ==

== ENCOUNTER → 2024-11-04 09:55 | Outpatient (BNVA) | payer BC, SELFPAY | PROVIDERS: PCP Nurse Practitioner Family; Visit Provider Registered Nurse Neonatal Intensive Care | DX: J02.9 Acute pharyngitis, unspecified (principal) | CPT/HCPCS: 87426; 87880 ==

== ENCOUNTER → 2024-12-11 08:36 | Outpatient (BNVA) | payer BC, SELFPAY | PROVIDERS: PCP Nurse Practitioner Family; Visit Provider Nurse Practitioner Family | DX: Z13.6 Encounter for screening for cardiovascular disorders (principal); Z68.37 Body mass index [BMI] 37.0-37.9, adult; E55.9 Vitamin D deficiency, unspecified; D64.9 Anemia, unspecified; R53.83 Other fatigue; L65.9 Nonscarring hair loss, unspecified | CPT/HCPCS: 80053; 80061; 81003; 82306; 82607; 82670; 82728; 82746; 83001; 83002; 83036; 83516; 83550; 83735; 84144; 84439; 84443; 85025; 86376 ==

== ENCOUNTER 2025-01-23 10:49 | Emergency (ER) | payer BC, SELFPAY ==
--- NOTE | 2025-01-23 10:55 | ECG_ITS ---
[facility] Date: 2025-01-23 Pat Name: Yanni Rocha Department: Room: Gender: Female Care Management Associate: : 1980 Requested By: Bubba De León Order Number: [id number] Harjinder MD: Shanon Norman M.D. Measurements Intervals [place] Rate: 66 P: 37 UT: 167 QRS: -3 QRSD: 96 T: 26 QT: 381 QTc: 400 Interpretive Statements SINUS RHYTHM WITH SINUS ARRHYTHMIA LOW QRS VOLTAGE IN PRECORDIAL LEADS [QRS DEFLECTION < 1.0 mV IN CHEST LEADS] SEPTAL MYOCARDIAL INFARCTION , OF INDETERMINATE AGE [40+ ms Q WAVE IN V1/V2] Compared to ECG 04/06/2021 00:46:47 Myocardial infarct finding now present Sinus tachycardia no longer present Incomplete right bundle-branch block no longer present Electronically Signed On 01-24-2025 12:59:47 MEDICAL RECEPTIONIST ASSISTANT by Shanon Norman M.D. [email or web address]
--- NOTE | 2025-01-23 10:59 | XRR_ITS ---
PROCEDURE INFORMATION: Exam: XR Chest Exam date and time: 01/23/2025 11:09 AM Age: 44 years old Clinical indication: Pain; Angina pectoris; Additional info: Chest pain overnight, radiating to arm/jaw, no cardiac HX TECHNIQUE: Imaging protocol: Radiologic exam of the chest. Views: 1 view. COMPARISON: CR XR chest 1V portable [id number] 04/06/2021 12:43 AM FINDINGS: Lungs: Mild bibasilar opacities favor atelectasis. No focal consolidation. Pleural spaces: Unremarkable. No pleural effusion. No pneumothorax. Heart/Mediastinum: Stable cardiomediastinal Bones/joints: Unremarkable. XR/XR chest 1V portable [id number] IMPRESSION: No acute findings.
[2025-01-23 11:00] VITALS: BP 145/96; PULSE 73; RESP 18; TEMP 36.5; O2SAT 97
--- NOTE | 2025-01-23 11:02 | W.ED.CHESTPA ---
HPI - Chest Pain General: Chief Complaint: Chest Pain Stated Complaint: chest pain History of Present Illness: 44-year-old female past medical history significant for obesity on phentermine intermittently, cervical radiculopathy, hormone replacement therapy use secondary to previous hysterectomy, on buspirone for depression/anxiety, presenting to the emergency department with onset since yesterday evening of intermittent episodes of throbbing chest pain, woke her up from sleep 3 times last night and this morning woke up with chest pain that did radiate into her both arms and bilaterally to the neck, she also had an episode of nausea with sweating that resolved, nonexertional in nature, no previous history of cardiac disease or smoking but does have family history of cardiac disease in her grandfather's side at old age, she did consume alcohol 3 nights ago at a wedding but does not chronically consume alcohol, she did take a CBD gummy last night prior to onset of symptoms but reports that she does not typically take these, she denies any other illicit substance use, she denies leg swelling or calf tenderness, denies history of DVT/PE, currently feels asymptomatic after receiving aspirin and nitroglycerin by EMS. Related Data Home Medications ?Medication ?Instructions ?Recorded ?Confirmed ascorbic acid (vitamin C) 1,000 mg 1 g PO DAILY 10/02/23 01/23/25 capsule magnesium 200 mg tablet 400 mg PO DAILY 03/20/24 01/23/25 estradiol 1 mg tablet 1 mg PO DAILY 06/19/24 01/23/25 Progesterone 25 25 mg PO DAILY 01/23/25 01/23/25 cyanocobalamin (vitamin B-12) 1,000 mcg PO DAILY 01/23/25 01/23/25 1,000 mcg tablet (Vitamin B-12) loratadine 10 mg tablet 10 mg PO QAM 01/23/25 01/23/25 naproxen 500 mg tablet 500 mg PO BID PRN Pain 01/23/25 01/23/25 Previous Rx's ?Medication ?Instructions ?Recorded buspirone 10 mg tablet 10 mg PO BID #180 tabs 07/07/24 Allergies Allergy/AdvReac Type Severity Reaction Status Date / Time fluconazole (From Diflucan) AdvReac ADR-Abdominal Verified 01/23/25 08:29 Pain ondansetron (From Zofran) AdvReac migraine Verified 01/23/25 08:29 headache [facility] ED PFSH: Medical History Acute pain of both shoulders Cervical radiculopathy, acute Acute cough Alopecia Chronic fatigue Anemia, unspecified type Neoplasm of uncertain behavior of face Obesity, morbid, BMI 40.0-49.9 Shortness of breath Upper respiratory tract infection, unspecified type Obesity Breast cancer screening by mammogram Postmenopausal ACL (anterior cruciate ligament) tear Knee pain Gastro-esophageal reflux disease without esophagitis Hypertension screen Medication management Vitamin D deficiency Urinary frequency Post-cholecystectomy syndrome Skin lesions Acute bacterial sinusitis Lower respiratory infection Recurrent tonsillitis Insomnia, unspecified type GERD (gastroesophageal reflux disease) Depression with anxiety Surgical History S/P total abdominal hysterectomy Status post laparoscopic cholecystectomy (~05/2019) Family History Brother CAD (coronary artery disease) Mother Hemochromatosis Other Heart disease Social History Smoking and tobacco/nicotine status: never used tobacco/nicotine Alcohol intake: never Substance/Drug Use: never Female Reproductive History: Spontaneous abortions: No Physical Exam Narrative: EXAM NARRATIVE: Gen: A&Ox4, no acute distress, nontoxic appearing HEENT: Normocephalic, atraumatic, no scleral icterus, external ears normal, moist mucous membranes Neck: Supple, full range of motion, no observable masses Lungs: No Respiratory distress, Lungs clear to auscultation bilaterally no rales, rhonchi, wheezing CV: Regular rate and rhythm, no murmur, no pitting edema to lower extremities bilaterally, no tenderness palpation of the chest wall Abdomen: Soft, nondistended, nontender to palpation MSK: No joint swelling, FROM all 4 extremities Skin: No rashes, petechiae, lesions. Normal color per patient. Neuro: Alert and oriented, no slurred speech, sensation and strength grossly intact all 4 extremities Psych: Appropriate for situation. Course Reevaluation(s): Reevaluation #1: Patient reassessed at this time, currently pain-free, workup generally unremarkable other than a hiatal hernia found incidentally on CT scan that was performed for a borderline elevated D-dimer, no elevation of troponin, negative CTA for PE, stable for discharge with outpatient cardiology referral as well as outpatient referral for gastroenterology for upper endoscopy to evaluate the hiatal hernia. Patient does have a remote history of significant GERD/reflux that improved when she lost 65 pounds last year but reports that she has regained the weight due to an ACL injury in the last year and is currently back to her previous weight. Time: 14:21 Vital Signs: Vital signs: Vital Signs Temperature 97.7 F 01/23/25 11:00 Pulse Rate 70 01/23/25 12:56 Respiratory Rate 18 01/23/25 11:00 Blood Pressure 137/86 01/23/25 12:56 Pulse Oximetry 97 01/23/25 12:56 Oxygen Delivery Me thod Room Air 01/23/25 12:56 MDM - Chest Pain Medical Decision Making 44-year-old female past medical history obesity on phentermine which she was previously off of until restarting it 1 week ago, exogenous estrogen use for former history of hysterectomy, presenting with intermittent chest pain rating to the arm and neck times less than 24 hours nonexertional in nature but was associated with 1 episode of nausea and diaphoresis, currently chest pain-free after receiving aspirin and nitro in the ambulance, she did have some tenderness per clinic evaluation to the chest wall which she no longer appears to have, she does have some alcohol use 3 days ago but not excessively as well as a CBD gummy ingested last night which may be contributory as well as the phentermine intermittent use, at this time her physical exam is normal and her vital signs appear normal, plan EKG performed on arrival without evidence of STEMI or significant acute ischemia, she does have some T wave flattening and Q waves in V2 but no contiguous lead involvement or reciprocal changes, cannot PERC out given exogenous hormone use, pain does have some cardiac presenting factors however does not appear completely typical given no exertion no history of cardiac issues in the past, plan for serial cardiac enzymes, D-dimer restratification for pulmonary embolism, monitor symptoms, reassess for disposition Lab Data Labs with negative troponin x 2, minimally elevated D-dimer, no anemia or leukocytosis, no MINA, normal electrolytes, negative proBNP 01/23/25 11:47 01/23/25 11:47 Radiology Impressions Chest X-Ray 01/23/25 10:59 IMPRESSION: No acute findings. Chest CTA 01/23/25 12:24 IMPRESSION: 1. No evidence of pulmonary embolus. 2. No acute pulmonary infiltrates. 3. Small to moderate esophageal hiatal hernia. Thickening at the GE junction and distal esophagus suspicious for esophagitis. Recommend follow-up endoscopy. Laboratory Results WBC 4.64 10^3/uL (3.29-11.43) 01/23/25 11:47 RBC 4.89 10^6/uL (3.85-5.65) 01/23/25 11:47 Hgb 14.70 g/dL (11.27-16.99) 01/23/25 11:47 Hct 43.9 % (36-47) 01/23/25 11:47 MCV 89.8 fl (85-98) 01/23/25 11:47 MCH 30.1 pg (27-33) 01/23/25 11:47 MCHC 33.5 g/dL (30-55) 01/23/25 11:47 RDW 12.7 % (12.1-15.1) 01/23/25 11:47 Plt Count 196 10^3/cmm (157-399) 01/23/25 11:47 MPV 9.7 fL (7.4-10.4) 01/23/25 11:47 Neut % (Auto) 51.3 % 01/23/25 11:47 Lymph % (Auto) 34.5 % 01/23/25 11:47 [place] % (Auto) 6.9 % 01/23/25 11:47 Eos % (Auto) 6.7 % 01/23/25 11:47 Baso % (Auto) 0.4 % 01/23/25 11:47 Neut # (Auto) 2.38 10^3/uL (1.8-7.7) 01/23/25 11:47 Lymph # (Auto) 1.6 10^3/uL (0.8-4.8) 01/23/25 11:47 [place] # (Auto) 0.3 10^3/uL (0.2-0.9) 01/23/25 11:47 Eos # (Auto) 0.3 10^3/uL (0.0-0.8) 01/23/25 11:47 Baso # (Auto) 0.0 10^3/uL (0.0-0.1) 01/23/25 11:47 Nucleated RBC % (auto) 0 % 01/23/25 11:47 Nucleated RBCs # 0.0 /100WBC 01/23/25 11:47 PT 12.90 SECONDS (12.1-14.9) 01/23/25 11:47 INR 0.91 (0.8-1.2) 01/23/25 11:47 APTT 26.4 SECONDS (23.9-36.7) 01/23/25 11:47 D-Dimer 0.64 ug/mLFEU (0-0.59) H 01/23/25 11:47 Sodium 140 mmol/L (136-145) 01/23/25 11:47 Potassium 4.0 mmol/L (3.5-5.1) 01/23/25 11:47 Chloride 104 mmol/L (98-107) 01/23/25 11:47 Carbon Dioxide 25 mmol/L (22-29) 01/23/25 11:47 Anion Gap 15.0 (5-19) 01/23/25 11:47 BUN 12 mg/dL (6-20) 01/23/25 11:47 Creatinine 0.8 mg/dL (0.5-0.9) 01/23/25 11:47 GFR Calculation 77.2 mL/min (90-130) L 01/23/25 11:47 Glucose 93 mg/dL (65-115) 01/23/25 11:47 Calculated Osmolality 289 mOsm/kg (285-295) 01/23/25 11:47 Calcium 9.9 mg/dL (8.5-10.5) 01/23/25 11:47 Total Bilirubin 0.4 mg/dL (0.15-1.2) 01/23/25 11:47 AST 18 U/L (0-32) 01/23/25 11:47 ALT 23 U/L (0-33) 01/23/25 11:47 Alkaline Phosphatase 95 U/L (35-105) 01/23/25 11:47 Creatine Kinase 56 U/L (26-192) 01/23/25 11:47 Troponin T Baseline < 6 ng/L (0-10) 01/23/25 11:47 Troponin T 120 Minute < 6.0 ng/L (0-10) 01/23/25 13:35 Delta Troponin T 0 ABS# (0-10) 01/23/25 13:35 NT-Pro-B Natriuret Pep < 36 pg/mL (0-125) 01/23/25 11:47 Total Protein 7.7 g/dL (6.6-8.7) 01/23/25 11:47 Albumin 4.3 g/dL (3.5-5.2) 01/23/25 11:47 Globulin 3.4 g/dL (1.3-4.6) 01/23/25 11:47 Lipase 28 U/L (13-60) 01/23/25 11:47 All radiology interpretation(s) finalized by discharge ED provider radiology interpretation(s): Chest x-ray no acute abnormality, CTA chest incidentally showing hiatal hernia, no pulmonary embolism EKG Data EKG 1: I personally reviewed and interpreted this EKG as follows: EKG interpretation date: 01/23/25 EKG interpretation time: 11:10 Prior EKG tracings: available for review (04/06/2021) Interpretation: EKG showing sinus rhythm with sinus arrhythmia at 66 bpm, no STEMI, Q-wave in V2 with T wave flattening in V2, QTc 394 ms, normal axis EKG 2: I personally reviewed and interpreted this EKG as follows: EKG interpretation date: 01/23/25 EKG interpretation time: 13:12 Interpretation: Sinus rhythm at 62 bpm, no STEMI, no ectopy, QTc 393 ms, Discharge Plan Discharge Patient Disposition: Home Clinical Impression: Chest pain Condition: Stable Prescriptions: No Action ascorbic acid (vitamin C) 1,000 mg capsule 1 g PO DAILY estradiol 1 mg tablet 1 mg PO DAILY buspirone 10 mg tablet 10 mg PO BID Qty: 180 3RF magnesium 200 mg Tablet 400 mg PO DAILY cyanocobalamin (vitamin B-12) [Vitamin B-12] 1,000 mcg Tablet 1,000 mcg PO DAILY loratadine 10 mg Tablet 10 mg PO QAM naproxen 500 mg Tablet 500 mg PO BID PRN (Reason: Pain) Progesterone 25 25 mg PO DAILY Discharge Orders: Discharge ED (Routine); Ordered 01/23/25 Ordered By: Bubba De León Referrals: IVONE Zaragoza, CRE[employer] MEMBER [Primary Care Provider, Family Practice] Patient Instructions: Patient Portal & Traci Instructions, Chest Pain (DC), Hiatal Hernia (DC) Print Language: Occitan Coding Level of Care Code ED Syruper for Chg Fwd Heart Score HEART Score Components History: Moderately Suspicious EKG: Non-specific Changes Age: 45-64 yrs Risk Factors: 1 or 2 Risk Factors Troponin: Baseline Trop <16 ng/L HEART Score RESULT HEART Score: 4
--- OUTSIDE RECORDS SUMMARY | 2025-01-23 11:08 | XMS_ITS | Encounter Summary ---
Author Organization [facility] Address [address] [place] [address] Phone Care Team Providers Care Mailroom Personnel Name Role Phone Kathleen García MD Primary Care Provider [phone] Encounter Details Date Type Department Care Team (Late st Contact Info) Description 01/06/2022 Orders Only [facility] [address] [place] [address] Abnormal result of kidney function study Social History Tobacco Use Types Packs/Day Years Used Date Smoking Tobacco: Never Assessed Comments Unknown Sex and Gender Information Value Date Recorded Sex Assigned at Not on file Legal Sex Female 12:42 PM EDT Gender Identity Not on file Sexual Orientation Not on file documented as of this encounter Plan of Treatment Not on file documented as of this encounter Visit Diagnoses Diagnosis Abnormal result of kidney function study documented in this encounter Care Teams Mailroom Personnel Relationship Specialty Start Date End Date Kathleen García MD PCP - General Family Medicine 01/06/22 documented as of this encounter
--- OUTSIDE RECORDS SUMMARY | 2025-01-23 11:08 | XMS_ITS | Clinical Summary ---
Author Organization [facility] Address [address] [place] [id number] Care Team Providers Care Mental Health Therapist Name Role Phone Kathleen García MD Primary Care Provider [phone] Allergies Active Allergy Reactions Criticality Noted Date Comments Fluconazole 01/18/2022 Ondansetron 01/18/2022 Medications busPIRone (BUSPAR) 5 MG tablet Take 15 mg by mouth at bed time Active UNABLE TO FIND Med Name: CBD Gummy at bedtime Active Pancrelipase, Rwb-Uhmq-Sgjg, 47650-423155 units capsule delayed-release particles Take 2 capsules by mouth With meals approx. Twice weekly. Zenpep Active pantoprazole (PROTONIX) 40 MG EC tablet Take 40 mg by mouth 1 (one) time each day before breakfast Do not crush, chew, or split. Active norgestimate-et hinyl estradiol (VyLibra) 0.25-35 MG-MCG per tablet Take 1 tablet by mouth 1 (one) time each day Active aspirin-acetami nophen-caffeine (EXCEDRIN MIGRAINE) 250-250-65 MG per tablet Take 1 tablet by mouth every 6 (six) hours if needed for headaches Excedrin as well Equate Active acetaminophen (TYLENOL) 500 MG tablet Take 500 mg by mouth every 6 (six) hours if needed for mild pain Active diphenhydrAMINE (BENADRYL) 25 MG capsule Take 25 mg by mouth at bed time Active Active Problems No known active problems Family History Medical History Relation Comments Coronary artery disease Brother Hemochromatosis Mother Relation Status Comments Brother Mother Social History Tobacco Use Types Packs/Day Years Used Date Smoking Tobacco: Never Smokeless Tobacco: Never Tobacco Cessation:Counseling Given: Not Answered Alcohol Use Standard Drinks/Week Comments Yes 0 (1 standard drink = 0.6 oz pure alcohol) Occasionally Wine monthly maybe Comments No Sex and Gender Information Value Date Recorded Sex Assigned at Not on file Legal Sex Female 12:42 PM EDT Gender Identity Not on file Sexual Orientation Not on file Last Filed Vital Signs Vital Sign Reading Time Taken Comments Blood Pressure 122/80 03/27/2022 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 Pulse 78 03/27/2022 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 Temperature - - Respiratory Rate - - Oxygen Saturation - - Inhaled Oxygen Concentration - - Weight 128 kg (282 lb 6.4 oz) 03/27/2022 11:16 A M COLORING MACHINE OPERATOR Height 165.1 cm (5' 5 ) 03/27/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
--- OUTSIDE RECORDS SUMMARY | 2025-01-23 11:08 | XMS_ITS | Clinical Summary ---
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 Gender Identity Not on file Sexual Orientation Not on file Plan of Treatment Health Maintenance Due Date Last Done Comments Annual Wellness 1980 Td, Tdap Vaccines Adult 1997 Pap Smear 1999 Mammogram 2018 Colonoscopy 2023 Influenza Vaccination (#1) 2024 01/28/2015 Hepatitis B Vaccines Completed 07/13/2015, 01/20/2015, 11/10/2014 HIB Vaccines Aged Out No longer eligi ble based on patient's age to complete this topic HPV Vaccines Aged Out No longer eligi ble based on patient's age to complete this topic Hepatitis A Vaccines Aged Out No long er eligible based on patient's age to complete this topic IPV Vaccines Aged Out No longer eligi ble based on patient's age to complete this topic Meningococcal Vaccines Aged Out No lo nger eligible based on patient's age to complete this topic Pneumococcal Vaccine: Pediatrics (0 to 5 Years) and At-Risk Patients (6 to 49 Years) Aged Out No longer eligible b ased on patient's age to complete this topic RSV Mab Nirsevimab (Beyfortu s) <20 months Aged Out No longer eligible b ased on patient's age to complete this topic Rotavirus Vaccines Aged Out No longer eligible based on patient's age to complete this topic
[2025-01-23 12:05] LABS: Hematocrit 43.9 % (36-47); Hemoglobin 14.70 g/dL (11.27-16.99); Mean Corpuscular HGB Conc 33.5 g/dL (30-55); Mean Corpuscular Hemoglobin 30.1 pg (27-33); Mean Corpuscular Volume 89.8 fl (85-98); Nucleated Red Blood Cells % 0 %; Platelet Count 196 10^3/cmm (157-399); Red Blood Count 4.89 10^6/uL (3.85-5.65); White Blood Count 4.64 10^3/uL (3.29-11.43)
[2025-01-23 12:17] LABS: INR 0.91 (0.8-1.2); Prothrombin Time 12.90 SECONDS (12.1-14.9)
[2025-01-23 12:18] LABS: Partial Thromboplastin Time 26.4 SECONDS (23.9-36.7)
[2025-01-23 12:24] LABS: Troponin(5th) Baseline < 6 ng/L (0-10)
--- NOTE | 2025-01-23 12:24 | CT_ITS ---
WS: [id number] CTA OF THE CHEST WITH PULMONARY EMBOLISM PROTOCOL TECHNIQUE: High-resolution contrast enhanced CTA of the chest with coronal and sagittal reformatted images with pulmonary embolism protocol. MIP images are also reviewed. CLINICAL INFORMATION: chest pain, elevated d-dimer, r/o PE COMPARISON: None. DLP: 432.[address] scans at [facility] use at least one of these dose optimization techniques: automated exposure control; mA and/or kV adjustment per patient size (includes targeted exams where dose is matched to clinical indication); or iterative reconstruction. FINDINGS: Proximal main pulmonary arteries are normal. Normal segmental and subsegmental pulmonary arteries. No evidence of pulmonary embolus. Normal caliber thoracic aorta. Cholecystectomy clips. Small to moderate esophageal hiatal hernia. Adrenal glands are normal. Mild thoracic curve. CT/CT angio chest PE protcl [id number] IMPRESSION: 1. No evidence of pulmonary embolus. 2. No acute pulmonary infiltrates. 3. Small to moderate esophageal hiatal hernia. Thickening at the GE junction a nd distal esophagus suspicious for esophagitis. Recommend follow-up endoscopy.
[2025-01-23 12:38] LABS: Alanine Aminotransferase 23 U/L (0-33); Albumin Level 4.3 g/dL (3.5-5.2); Alkaline Phosphatase 95 U/L (35-105); Anion Gap 15.0 (5-19); Aspartate Amino Transferase 18 U/L (0-32); Blood Urea Nitrogen 12 mg/dL (6-20); Calcium 9.9 mg/dL (8.5-10.5); Carbon Dioxide 25 mmol/L (22-29); Chloride 104 mmol/L (98-107); Creatinine Clr Calc Pharmacy 117.0568; Globulin 3.4 g/dL (1.3-4.6); Glucose 93 mg/dL (65-115); Lipase 28 U/L (13-60); NT Pro B Type Natriuretic Pept < 36 pg/mL (0-125); Osmolality Calculated 289 mOsm/kg (285-295); Potassium 4.0 mmol/L (3.5-5.1); Sodium 140 mmol/L (136-145); Total Protein 7.7 g/dL (6.6-8.7)
--- NOTE | 2025-01-23 12:50 | PC.PHAR ---
Pt states she had not been taking her medications on a daily basis for the last couple weeks. Pt did take her medications today 01/23/25.
[2025-01-23 12:56] VITALS: BP 137/86; PULSE 70; O2SAT 97
--- NOTE | 2025-01-23 13:12 | ECG_ITS ---
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: : 1980 Requested By: Bubba De León Order Number: [id number] Harjinder MD: MONA CHAHAL Measurements Intervals [place] Rate: 62 P: 45 OK: 180 QRS: -3 QRSD: 100 T: 25 QT: 389 QTc: 395 Interpretive Statements SINUS RHYTHM LOW QRS VOLTAGE IN PRECORDIAL LEADS [QRS DEFLECTION < 1.0 mV IN CHEST LEADS] POSSIBLE RIGHT VENTRICULAR CONDUCTION DELAY [RSR (QR) IN V1/V2] SEPTAL MYOCARDIAL INFARCTION , PROBABLY OLD [40+ ms Q WAVE IN V1/V2] Compared to ECG 01/23/2025 10:55:18 Sinus arrhythmia no longer present Myocardial infarct finding still present Electronically Signed On 01-24-2025 16:07:51 CUSTOM WOOD STAIR BUILDER by MONA CHAHAL [email or web address]
[2025-01-23] MEDS: iohexol 350 mg/mL 500 mL Btl (per mL) IV (13:22)
[2025-01-23 14:08] LABS: Troponin 5 2HR < 6.0 ng/L (0-10); Troponin 5 2HR Delta 0 ABS# (0-10)
--- NOTE | 2025-01-23 14:31 | DCPLANNER ---
scheduled heart care f/u appt prior to er d/c 02/10@ 1520. Patient aware.
[2025-01-23 15:28] VITALS: BP 133/94; PULSE 75; O2SAT 98
--- NOTE | 2025-01-26 07:23 | DCPLANNER ---
messaged gen surg for er f/u
== END 2025-01-23 15:44 | disposition home or self-care (01) ==
PROVIDERS: Emergency Provider Student in an Organized Health Care Education/Training Program; PCP Nurse Practitioner Family
DX: R07.9 Chest pain, unspecified (principal)
CPT/HCPCS: 36415; 71045; 71275; 80053; 82550; 83690; 83880; 84484; 85025; 85378; 85610; 85730; 93005; 99285; J7030

== ENCOUNTER → 2025-02-09 09:13 | Outpatient (BNVA) | payer BC, SELFPAY | PROVIDERS: PCP Nurse Practitioner Family; Visit Provider Nurse Practitioner Family | DX: M67.919 Unspecified disorder of synovium and tendon, unspecified shoulder (principal) | CPT/HCPCS: 73030 ==

== ENCOUNTER 2025-02-27 11:27 | Outpatient (CLI) | payer BC, SELFPAY ==
--- NOTE | 2025-02-27 | ECG_ITS ---
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 Interpretive Statements Findings: the patient's baseline blood pressure is 158/104 mmHg the heart rate of 79 bpm. Patient exercised on the treadmill using the Sang protocol for 6 minutes and 1 secondsand achieved a maximum heart rate of 167 bpm which was 96% of the patient's maximal predicted heart rate. The patient achieved 7 METS. Patient's maximum blood pressure was 187/107. At the end of recovery the patient's blood pressure was 134/70 mmHg with a heart rate of 98 bpm. Baseline EKG showed normal sinus rhythm with low voltage. There were no ST or T wave changes with stress test or into recovery. CONCLUSION: 1. Exercise capacity was average for age. 2. Heart rate response was appropriate with no arrhythmia. 3. Blood pressure response was appropriate. 4. No symptoms of angina during exercise. 5. Electrocardiogram portion of the stress test without evidence of ischemia. Electronically Signed On 02-27-2025 18:36:54 NEIGHBORHOOD CONSERVATION OFFICER by Luis Armando Yeung M.D. [email or web address]
--- NOTE | 2025-02-27 11:15 | USCV_ITS ---
Yanni Rocha Age: 45 Gender: F : 1980 Exam Date: 02/27/2025 12:02 Ordering Phys: Luis Armando Yeung MD ([email or web address]) Technologist: Fab Saunders [place] [facility] [place]: chest pain BP: 124 / 70 HR: 62 Rhythm: Sinus Technical Quality: Adequate MEASUREMENTS (Male / Female) Normal Values 2D ECHO LV Diastolic Diameter PLAX 5.1 cm 4.2 - 5.9 / 3.9 - 5.3 cm IVS Diastolic Thickness 0.9 cm 0.6 - 1.0 / 0.6 - 0.9 cm IVS Systolic Thickness 1.1 cm LVPW Diastolic Thickness 0.8 cm 0.6 - 1.0 / 0.6 - 0.9 cm LVPW Systolic Thickness 1.9 cm LVOT Diameter 2.0 cm LV Ejection Fraction 2D Teich 64.0 % LV Ejection Fraction MOD 4C 65.4 % LV Ejection Fraction MOD 2C 67.7 % LV Ejection Fraction 2C AL 67.1 % LA Diameter 3.7 cm RA Systolic Volume 4C AL 48.7 ml RA Systolic Volume 4C MOD 47.1 ml LA Sys Volume AL 68.7 cm cubed LA Sys Volume Index AL 28.0 cm cubed/m squared Aorta at Sinotubular Diameter 2.1 cm IVC Diameter 1.6 cm M-MODE LA Ao Ratio MM 1.6 AV Cusp Separation MM 1.7 cm DOPPLER AV Peak Velocity 152.0 cm/s LVOT Peak Velocity 109.0 cm/s AV Area Cont Eq vti 2.1 cm squared AV Area Cont Eq pk 2.3 cm squared MV Peak Velocity 116.0 cm/s MV Area PHT 4.1 cm squared Mitral E to A Ratio 1.1 TV Peak Velocity 229.0 cm/s TR Peak Velocity 281.0 cm/s TR Peak Gradient 31.6 mmHg TR Mean Velocity 237.0 cm/s TR Mean Gradient 23.1 mmHg TR Velocity Time Integral 74.3 cm PV Peak Velocity 92.0 cm/s RV Ejection Time 0.3 s FINDINGS Left Ventricle Normal left ventricular size, systolic function and wall thickness with no regional wall motion abnormality. Left ventricular ejection fraction is 65%. Normal left ventricular diastolic function. Right Ventricle Normal right ventricular size and systolic function. Right Atrium Normal right atrial size. Left Atrium Normal left atrial size. IA Septum Normal appearance of the interatrial septum. Mitral Valve Normal mitral valve structure. No mitral valve stenosis or regurgitation. Aortic Valve Normal aortic valve structure. No aortic valve stenosis or regurgitation. Tricuspid Valve Normal tricuspid valve structure. Trace tricuspid valve regurgitation. Normal pulmonary pressure. Pulmonic Valve Normal pulmonic valve structure. Mild pulmonic valve regurgitation Pericardium No pericardial effusion. Aorta Normal diameter of the aortic root and ascending thoracic aorta. IVC Normal IVC diameter. CONCLUSIONS Normal left ventricular size, systolic function and wall thickness with ejection fraction of 65%. Normal right ventricular size and systolic function. No significant valvular abnormalities. Luis Armando Yeung MD, FACC (Electronically Signed) Final Date: 27 February 2025 17:52 S
[2025-02-27 12:30] VITALS: BMI 45.1
[2025-02-27 13:12] VITALS: BP 134/70; PULSE 98
== END 2025-02-27 11:28 | disposition home or self-care (01) ==
LOC: RAD 11:31 → CDL 12:15
PROVIDERS: PCP Nurse Practitioner Family; Visit Provider Internal Medicine Cardiovascular Disease
DX: R07.9 Chest pain, unspecified (principal); Z79.899 Other long term (current) drug therapy
CPT/HCPCS: 93017; 93306; J9999

== ENCOUNTER → 2025-03-16 09:26 | Outpatient (BNVA) | payer BC, SELFPAY | PROVIDERS: PCP Nurse Practitioner Family; Visit Provider Nurse Practitioner Family | DX: M25.542 Pain in joints of left hand (principal); M25.541 Pain in joints of right hand; M25.562 Pain in left knee; M25.561 Pain in right knee; M25.512 Pain in left shoulder | CPT/HCPCS: 86038; 86200; 86431 ==

== ENCOUNTER 2025-03-17 09:05 | Day surgery (SDC) | payer BC, SELFPAY ==
[2025-03-17 09:12] VITALS: BP 168/97; PULSE 69; RESP 18; TEMP 36.1; O2SAT 96; BMI 45.5
--- NOTE | 2025-03-17 09:14 | W.PM.OPSUD ---
Surgery/Procedure H&P Update DATE OF PROCEDURE: March 17, 2025 DATE H&P PERFORMED: 02/25/25 H&P UPDATE INFORMATION: I have reviewed H&P completed within last 30 days, I have examined patient prior to procedure, No changes to prior documentation, H&P is in [facility] EMR on date indicated and Risks and benefits of the procedure reviewed PLANNED PROCEDURE: Operation Date: 03/17/25 11:00 Proposed Procedures p EGD EGD with Biopsy [id number] K44.9(Not Applicable) - Rajan Aguero MD
--- NOTE | 2025-03-17 10:18 | ANES.PREANE2 ---
Pre-Anesthetic Assessment Height/Weight: Height 1.68 m Weight 127.913 kg Temp Pulse Resp BP Pulse Ox O2 Del Method 97.0 F L 69 18 168/97 96 Room Air 03/17/25 09:12 03/17/25 09:12 03/17/25 09:12 03/17/25 09:12 03/17/25 09:12 03/17/25 09:12 Operation Date: 03/17/25 11:00 Proposed Procedures p EGD EGD with Biopsy [id number] K44.9(Not Applicable) - Rajan Aguero MD Familial anesthetic complications: PONV Was Beta Humza taken within 24 hours: N/A Was Clonidine taken within 24 hours: N/A Last intake: Intake Last Liquid Date 03/16/25 Last Liquid Time 23:30 Last Solid Date 03/16/25 Last Solid Time 22:00 Social No alcohol and No tobacco Exam alert, oriented x 3, clear to auscultation bilaterally and regular rate & rhythm Airway Mallampati: Class II GI Gastroesophageal Reflux Disease Metabolic Morbid Obesity Anesthetic Plan ASA status: 3 Anesthesia: MAC Risk of > 500 ml blood loss (7ml/kg in children): No Medications/Allergies Home Medications ?Medication ?Instructions ?Recorded ?Confirmed ?Last Taken ?Type ascorbic acid (vitamin C) 1,000 mg 1 g PO DAILY 10/02/23 03/16/25 01/23/25 History capsule magnesium 200 mg tablet 400 mg PO DAILY 03/20/24 03/16/25 01/23/25 History estradiol 1 mg tablet 1 mg PO DAILY 06/19/24 03/16/25 01/23/25 History buspirone 10 mg tablet 10 mg PO BID #180 tabs 07/07/24 03/16/25 01/23/25 Rx Progesterone 25 25 mg PO DAILY 01/23/25 03/16/25 01/23/25 History cyanocobalamin (vitamin B-12) 1,000 mcg PO DAILY 01/23/25 03/16/25 01/23/25 History 1,000 mcg tablet (Vitamin B-12) loratadine 10 mg tablet 10 mg PO QAM 01/23/25 03/16/25 01/23/25 History albuterol sulfate 2.5 mg/3 mL 2.5 mg (3 mL) inhalation Q4H PRN 12/03/16/25 01/19/25 Rx (0.083 %) solution for nebulization bronchospasm #90 mL naproxen 500 mg tablet 500 mg PO BID PRN Pain 90 days 03/16/25 03/16/25 01/19/25 Rx #180 tabs pantoprazole 40 mg tablet,delayed 40 mg PO BID 90 days #180 tabs 03/16/25 03/16/25 01/19/25 Rx release (Protonix) Allergies Allergy/AdvReac Type Severity Reaction Status Date / Time fluconazole (From Diflucan) AdvReac ADR-Abdominal Verified 03/17/25 09:14 Pain ondansetron (From Zofran) AdvReac migraine Verified 03/17/25 09:14 headache Current Medications Generic Name Dose Route Start Last Admin Trade Name Freq PRN Reason Stop Dose Admin Sodium Chloride 1,000 mls @ 15 mls/hr 03/17/25 09:09 03/17/25 09:48 Sodium Chloride 0.9% IV 03/18/25 09:08 15 mls/hr .Q24H PRN Administration COLONOSCOPY FLUIDS PFSH Anesthesia Medical History (Updated 03/16/25 @ 09:55 by ANTOLIN Rosa) Multiple joint pain Left shoulder pain Gastroesophageal reflux disease, unspecified whether esophagitis present Hiatal hernia Dysfunction of left rotator cuff Acute pain of both shoulders Cervical radiculopathy, acute Acute cough Alopecia Chronic fatigue Anemia, unspecified type Neoplasm of uncertain behavior of face Obesity, morbid, BMI 40.0-49.9 Shortness of breath Upper respiratory tract infection, unspecified type Obesity Breast cancer screening by mammogram Postmenopausal ACL (anterior cruciate ligament) tear Knee pain Gastro-esophageal reflux disease without esophagitis Hypertension screen Medication management Vitamin D deficiency Urinary frequency Post-cholecystectomy syndrome Skin lesions Acute bacterial sinusitis Lower respiratory infection Recurrent tonsillitis Insomnia, unspecified type Depression with anxiety Surgical History S/P total abdominal hysterectomy Status post laparoscopic cholecystectomy (~05/2019) Family History Brother CAD (coronary artery disease) Mother Hemochromatosis Other Heart disease Social History Smoking and tobacco/nicotine status: never used tobacco/nicotine Alcohol intake: never Substance/Drug Use: never Female Reproductive History Spontaneous abortions: No Data Anesthesia Cardiac Studies: Echocardiogram 02/27/25
[2025-03-17 10:20] VITALS: BP 127/88; PULSE 76; RESP 16; TEMP 36.1; O2SAT 97
[2025-03-17 10:45] VITALS: BP 136/102; PULSE 62; RESP 16; O2SAT 99
--- NOTE | 2025-03-17 10:55 | ANE.PACU2 ---
Inpatient post-anesthesia follow up: Airway intact: Yes Vital signs: Temperature 97 F Pulse Rate 62 Respiratory Rate 16 Blood Pressure 136/102 Pulse Oximetry 99 Oxygen Delivery Me thod Room Air Oxygen Flow Rate Fraction of Inspir ed Oxygen Hydration adequate: Yes Nausea and vomiting: No Pain level: 1 Mental status: Baseline
== END 2025-03-17 10:55 | disposition home or self-care (01) ==
PROVIDERS: PCP Nurse Practitioner Family; Visit Provider Surgery
PROC: 0DJ08ZZ Inspection of Upper Intestinal Tract, Via Natural or Artificial Opening Endoscopic (ICD-10-PCS; principal; 2025-03-17 11:00)
DX: R10.13 Epigastric pain (principal); K44.9 Diaphragmatic hernia without obstruction or gangrene; K20.90 Esophagitis, unspecified without bleeding; K29.70 Gastritis, unspecified, without bleeding; K21.9 Gastro-esophageal reflux disease without esophagitis; E66.01 Morbid (severe) obesity due to excess calories; Z68.42 Body mass index [BMI] 45.0-49.9, adult; D64.9 Anemia, unspecified; F41.8 Other specified anxiety disorders
CPT/HCPCS: 43239; 88305; J2704; J7030; J9999